=== PATIENT | male | born 1955 | race Caucasian/White ===

== ENCOUNTER 2017-04-18 05:48 | Outpatient (CLI) | payer BC ==
[~2017-04-18] VITALS: Ht 177.8 cm; Wt 81.6 kg
[~2017-04-18 05:48] MED LIST: ALPR-557 PO; ALPR.25T PO; ALPR.5T PO; ALPR0.5T7 PO; AMIO200T50 PO; APIX5TAB PO; ASP325T PO; ASP81CT PO; ASP81TEC PO; ASPI-983 PO; ASPI-999 PO; ATRV10T PO; CARV3.12T PO; CEFU500T5 PO; CETI5TAB6 PO; CLOP75TA PO; CLOP75TA28 PO; CLPD75T PO; DCS100C PO; DILT120C82 PO; DIPH25CA79 PO; Diltiazem Hcl PO; GABA-490 PO; HYDR-34 PO; HYDR-3812 PO; HYDR1CAP2 PO; IBUP-30 PO; Ibuprofen PO; LACT1CAP62 PO; LORA10TA7 PO; MELO15TA14 PO; MELO15TA39 PO; METO-387 PO; MULT-633 PO; MULT-974 PO; NAPR250T34 PO; NITR0.4T SL; NITR0.4T39 SL; OMEG-105 PO; OMEG1CAP24 PO; OMEGA 3 PO; OMEP20CA12 PO; PANT20TA2 PO; PANT40TA PO; PNT40TEC PO; PRAV20TA3 PO; PRED15SO PO; RAMI2.5C PO; RANI-10; RANI150T11 PO; RANO500T3 PO; RMP2.5C PO; RNT150T PO; SENN-33 PO; TRAM-21 PO; TRAM50TA2; TRAM50TA2 PO
[2017-04-18] MEDS ORDERED: ASPI-586 PO (15:26)
[2017-04-18] MEDS ORDERED: GABA600T2 PO (15:26)
[2017-04-18] MEDS ORDERED: AMLO2.5T PO (15:26)
== END 2017-04-18 15:29 ==
LOC: PREOP 05:48
PROVIDERS: ATTEND Surgery
DX: Z01.818 Encounter for other preprocedural examination (principal); Z12.11 Encounter for screening for malignant neoplasm of colon

== ENCOUNTER 2017-04-25 07:30 | Day surgery (SDC) | payer BC ==
[~2017-04-25] VITALS: Ht 177.8 cm; Wt 81.6 kg
[~2017-04-25 07:30] MED LIST changes: +AMLO2.5T PO; +ASPI-586 PO; +GABA600T2 PO
--- OUTSIDE RECORDS SUMMARY | 2017-04-25 07:33 | XMS REPORT | Continuity of Care Document ---
Author Author [employer] Organization [facility] Address Unknown Phone Unavailable Care Team Providers Care Enterprise Project Manager Name Role Phone [employer] Unavailable Unavailable Problems Medications Allergies, Adverse Reactions, Alerts Immunizations Results Vital Signs Encounters Procedures Plan of Care Social History Assessment and Plan Family History Value Date Source Advance Directives Order Name Results Value Date Source
--- OUTSIDE RECORDS SUMMARY | 2017-04-25 07:33 | XMS REPORT | Clinical Summary ---
Author Author [facility] Organization [facility] Address Unknown Phone Unavailable Care Team Providers Care Architectural Representative Name Role Phone PCP Unavailable Source Comments Some departments are not documenting in the electronic medical record. If you do not see the information that you expected, contact Release of Information in the Health Information Management department at [phone] for further assistance in locating additional records.[facility] Allergies No Known Allergies Current Medications Prescription Sig. Disp. Refills Start End Date Status Date nitroglycerin (NITROSTAT) Place 0.4 mg under tongue Active 0.4 mg tablet every 5 minutes as needed for Chest Pain. ALPRAZolam (XANAX) 0.5 mg Take 0.5 mg by mouth as Active tablet Needed. diphenhydrAMINE (BENADRYL Take 50 mg by mouth at Active ALLERGY) 25 mg tablet bedtime as needed. DOCOSAHEXANOIC ACID/EPA Take 2,000 Units by mouth Active (FISH OIL PO) twice daily. HYDROcodone/acetaminophen Take 1 Tab by mouth every Active (NORCO; VICODIN) 5-325 mg 4 hours as needed for tablet Pain Lactobacillus rhamnosus Take 1 Cap by mouth Active GG (LACTOBACILLUS daily. RHAMNOSUS (GG)) 15 billion cell cpSP aspirin EC 81 mg tablet Take 81 mg by mouth Active daily. Take with food. apixaban (ELIQUIS) 5 mg Take 1 Tab by mouth twice 180 Tab 3 08/14/19 Active tablet daily. 17 meloxicam (MOBIC) 15 mg Take 15 mg by mouth Active tablet daily. gabapentin (NEURONTIN) Take 1 tablet by mouth 2 04/08/20 Active 600 mg tablet three times daily. 17 RANITIDINE HCL (ZANTAC Take by mouth as Needed. Active PO) docusate (COLACE) 100 mg Take 100 mg by mouth as Active capsule Needed for Constipation. amLODIPine (NORVASC) 2.5 Take 1 tablet by mouth 180 tablet 3 04/13/20 Active mg tablet twice daily. 17 gabapentin (NEURONTIN) Take 100 mg by mouth 04/13/20 Discontin 100 mg capsule twice daily. [address] Take 40 mg by mouth as 04/13/20 Discontin (NEXIUM) 40 mg capsule Needed. Take on an empty 17 ued stomach at least 1 hour before or 2 hours after food. amLODIPine (NORVASC) 2.5 Take 1 Tab by mouth 90 Tab 3 08/14/1904/13 Discontin mg tablet daily. 17 17 ued Active Problems Problem Noted Date Atrial fibrillation (HCC) 12/02/2014 Last Assessment & Plan: Paroxysmal atrial fibrillation and atrial flutter- Despite being on antiarrhythmic drug therapy with Multaq, Mr. Jansen continues to have symptomatic episodes of atrial fibrillation, that are lifestyle limiting. Once again, a detailed discussion ensued about atrial fibrillation and the treatment options at this time. Options discussed included: drug therapy for rate control, continuing antiarrhythmic drug therapy, which his atrial arrhythmias have been refractory to, and catheter based radiofrequency ablation. The details, benefits, and risks of the procedure were discussed in detail. Because recurrence of atrial arrhythmias can occur in the immediate post procedure period, antiarrhythmic therapy will be restarted post procedure and continued for 2-3 months. Mr. Jansen and his verbalized understanding of the procedure and the risks. All of his questions were answered to his satisfaction and the patient wishes to proceed with atrial flutter/atrial fibrillation/left atrial antral isolation radiofrequency ablation. Printed pre-procedure instructions were given with directions on when to hold and restart medications and the nurse reviewed the instructions with the patient. Normal cardiac function test 10/23/2014 Overview: 12/30/12 Echo ([facility]): Normal LV systolic function, EF 60%. PAP normal. 08/01/13 Treadmill stress test ([facility]): Negative for ischemia. 01/04/14 Echo ([facility]): Normal LV systolic function, EF 60%. PAP normal. 09/27/14 Echo ([facility]): Normal LV systolic function, EF 55-60%. PAP normal. CAD (coronary artery disease) 10/23/2014 Overview: 10/30/12: CABGx4 with non-reversed saphenous vein grafts to diagonal, obtuse marginal and right coronary arteries and the left internal thoracic artery graft to anterior descending coronary artery. 01/03/14: Cath with coronary intervention ([facility]) 1. 95% stenosis within proximal right coronary artery was successfully stented with Promus Premier 2.25 x 12 mm stent deployed at 20 atmospheres with reduction of stenosis to 0% residual. 06/17/14: CCTA: No PE. 09/27/14: Cath ([facility]) 1. Severe CAD consisting of mid-vessel occlusion LAD, severe disease of first branch and severe disease of proximal left circumflex artery and its main obtuse marginal branch. L ast Assessment & Plan: Mr. Jansen denies any new symptomatic complaints suggestive of ischemia. His coronary artery disease is managed by his primary taxonomy teacher Dr. Meléndez. HTN (hypertension) 10/23/2014 Last Assessment & Plan: Well controlled on current therapy. Hyperlipidemia 10/23/2014 Encounters Date Type Specialty Care Team Description 04/13/2017 Office Visit Cardiology Roni Larson MD Paroxysmal Afib (8 month follow up); Atrial Flutter; Medication Question (meloxicam with eliquis?); Elevated Blood Pressure from Last 3 Months Family History Medical History Relation Name Comments Heart Disease Brother Heart Attack Brother Cancer Father Heart Attack Father Heart Disease Father Stroke Mother Heart Disease Sister Heart Attack Sister Relation Name Status Comments Brother Brother Father Mother Sister Sister Social History Tobacco Use Types Packs/Day Years Used Date Former Smoker Cigarettes 1 4 Quit: 07/02/1981 Smokeless Tobacco: Former Quit: User 07/02/1973 Alcohol Use Drinks/Week oz/Week Comments Yes 0 Standard 0.0 1-2 x per year drinks or equivalent Sex Assigned at Date Recorded Not on file Last Filed Vital Signs Vital Sign Reading Time Taken Blood Pressure 154/98 04/13/2017 10:38 AM TECHNICAL SERVICES LIBRARIAN Pulse 61 04/13/2017 10:38 AM TECHNICAL SERVICES LIBRARIAN Temperature 35.5 C (95.9 F) 08/06/2015 9:30 AM CDT Respiratory Rate - - Oxygen Saturation 98% 08/06/2015 9:30 AM CDT Inhaled Oxygen - - Concentration Weight 82.1 kg (181 lb) 04/13/2017 10:38 AM TECHNICAL SERVICES LIBRARIAN Height 177.8 cm (5' 10") 04/13/2017 10:38 AM TECHNICAL SERVICES LIBRARIAN Body Mass Index 25.97 04/13/2017 10:38 AM TECHNICAL SERVICES LIBRARIAN Plan of Treatment Health Maintenance Due Date Last Done Comments HEPATITIS C SCREENING 1956 PHYSICAL (COMPREHENSIVE) 07/24/1963 EXAM PERTUSSIS VACCINE 07/24/1967 TETANUS VACCINE 1973 COLORECTAL CANCER 2006 SCREENING SHINGLES VACCINE 2016 INFLUENZA VACCINE 12/07/2016 Results * ECG/QRS (04/13/2017 10:49 AM) Component Value Ref Range QRS DURATION 96 Specimen Performing Laboratory OTHER OUTSIDE LAB from Last 3 Months
--- OUTSIDE RECORDS SUMMARY | 2017-04-25 07:33 | XMS REPORT | Encounter Summary ---
Author Author [facility] Organization [facility] Address Unknown Phone Unavailable Care Team Providers Care Garage Manager Name Role Phone PCP Unavailable Reason for Visit * Reason Comments Paroxysmal Afib 8 month follow up Atrial Flutter Medication Question meloxicam with eliquis? Elevated Blood Pressure Encounter Details Date Type Department Care Team Description 04/13/2017 Office Visit [facility] Cardiology Roni Larson MD Paroxysmal Afib ([address] month [address] follow up); Atrial [address] Flutter; [place] [address] [place] [address] Question (meloxicam with [phone] eliquis?); Elevated Blood Pressure Social History Tobacco Use Types Packs/Day Years Used Date Former Smoker Cigarettes 1 4 Quit: 07/02/1981 Smokeless Tobacco: Former Quit: User 07/02/1973 Alcohol Use Drinks/Week oz/Week Comments Yes 0 Standard 0.0 1-2 x per year drinks or equivalent Sex Assigned at Date Recorded Not on file as of this encounter Last Filed Vital Signs Vital Sign Reading Time Taken Blood Pressure 154/98 04/13/2017 10:38 AM LIQUID SUGAR MELTER Pulse 61 04/13/2017 10:38 AM LIQUID SUGAR MELTER Temperature - - Respiratory Rate - - Oxygen Saturation - - Inhaled Oxygen - - Concentration Weight 82.1 kg (181 lb) 04/13/2017 10:38 AM LIQUID SUGAR MELTER Height 177.8 cm (5' 10") 04/13/2017 10:38 AM LIQUID SUGAR MELTER Body Mass Index 25.97 04/13/2017 10:38 AM LIQUID SUGAR MELTER in this encounter Instructions * Patient Instructions - Vickie Delgado RN - 04/13/2017 10:30 AM LIQUID SUGAR MELTER Increase your norvasc (amlodipine) 2.5 mg twice daily Talk with your urologist --Check your BP (Blood Pressure) daily and you may vary the time of day you check it. Monitor your blood pressure regularly Consider obtaining an automatic home blood pressure cuff if you don't already have one. Try to follow a low salt diet. If you smoke, make an honest effort to quit. Exercise helps with your blood pressure. Try to get at least 30 minutes of moderate intensity exercise at least 4 days a week. Your desired BP is with the top # less than 135 and bottom # less than 85. Call our office or your PCP if your blood pressure remains at or above the desired measurement consistently. If you have questions about your blood pressure readings, please contact the office. Follow up with Dr Larson in one year If you have change in signs or symptoms [phone] in this encounter Progress Notes * Roni Larson MD - 04/13/2017 10:30 AM LIQUID SUGAR MELTER Formatting of this note may be different from the original. Date of Service: 04/13/2017 Logan Hernandez is a 61 y.o. male. HPI I had the pleasure of seeing your patient Logan HERNANDEZ in the [facility] as a part of the [facility] [place] office today for follow-up regarding his Atrial Arrhythmias. His Primary Quarter Backer is my friend and colleague, Dr. Tayler Meléndez. Mr. HERNANDEZ is an exceptionally pleasant 61 y.o. Male. Also, with both their permission, I have also seen his brother, Lefty. The past medical history and data below has been reviewed and updated by me with new events for today's visit. 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 Meléndez); Hypertension; and Hyperlipidemia. He has a [id number] score of 2: CAD; HTN Regarding his AFIB Hx: Please see Problem List and Prior OV notes including and Especially 10/17/15 and Initial Consultation note for greater detail. However , briefly: HE HAS BEEN REFRACTORY to MULTAQ. He also had some intolerance to it as well. -- 10/2012: Post-CABG AFIB. -- [id number]: No significant recurrences. Multiple Holter monitors by Dr. Meléndez with NO AFIB, only isolated ectopy. -- 10/01/14: Recurrent AFIB (he attributes this to being on Prednisone). -- 10/22/14: Recurrent AFIB/AFL. -- 10/23/14: Initial EP Consultation: ECG documented coarse AFIB, which then seemed to organize into an AFL. The flutter waves were clearly negative in the Inferior leads, and upright in V1, suggesting a possible Right-sided CTI- Dependent circuit. However, the flutter waves in the Inferior leads were also narrow, suggesting a Left-sided AFIB conducting over to the RA with an organized activation (thus NOT being a true CTI-Dependent Right-sided AFL). -- 10/23/14: Initiated Multaq 400 mg BID. -- : ELR: Sxs of "fluttering" correlated mostly with sinus rhythm to sinus bradycardia with PACs, but 2 transmissions correlated with AFL and coarse AFIB. Sxs of chest discomfort correlated with sinus rhythm to sinus bradycardia. -- 01/23/15: [address] CTA: Mild LAE and 4 PVs. -- 07/2015:A. fib Ablation Canceledhe initially wished to proceed with an Ablation procedure, and was actually scheduled for an AFIB RFA with Right- Sided AFL CTI-RFA on 08/06/15. However, he seemed very anxious about the procedure-- in fact, he actually came in for the procedure one morning and just before leaving the preprocedure area "changed his mind." Unfortunately, he has changed his mind about the procedure on numerous occasions, including one morning the day he presented in the hospital for the procedure, stating he wanted to have it done at one moment and then later not. Ultimately, I was uncomfortable proceeding, since he did not seem to be definitive about his interest. Therefore, the procedure was canceled. -- 08/2015: Sxs of decreased energy since Multaq --> DC'ed Multaq, issued ELR. -- : ELR: Sxs of "fluttering" correlated mostly with sinus rhythm with occasional PVCs/PACs, but 2 transmissions correlated with brief (< 6 seconds) AFIB and ATACH. Regarding his CAD: Please see Problem List and Prior OV notes including and Initial Consultation note for greater detail. However, briefly: -- 10/2012: CABG x4. [place]:LAD, SVG:Diagonal, SVG:OM, and SVG:RCA. -- 12/2013: Cardiac Cath: Occluded SVG:RCA --> PCI with Stent. -- 09/27/14: Cardiac Cath: Unchanged Cornell and Grafts. Patent stent. Normal LVEDP. -- His CAD is followed via Dr. Meléndez's office. Regarding his Chronic Chest Pain Hx: Please see Problem List and Prior OV notes including 10/17/15 and Initial Consultation note for greater detail. However, briefly: -- 2012: Initially reported Sxs of CP Post-CABG. -- 09/2014: Extensive evaluation by Dr. Meléndez --> Ruled out aortic dissection or pulmonary embolus. -- 09/27/14: Cardiac Cath: Unchanged Cornell and Grafts. Patent stent. Normal LVEDP. 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 -- 07/2014: Sternal Plastic Surgery --> Sxs continued. -- 2015: Referred to [facility] for further evaluation and treatment. -- : ELR: Sxs of chest discomfort correlated with sinus rhythm to sinus bradycardia-- some transmissions with PACs, but other PACs were ASxic. -- 02/2015: [facility] Eval --> Initiated Empiric ASA and Colchicine 0.6 mg BID --> Titrated to 0.3 mg BID for Sxs of diarrhea. Pain Management recommended Lidocaine patches. -- 2014: ED Cardiac MRI: Reportedly concerning for Pericarditis --> Tx initiated by Primary CV. Regarding his Hyperlipidemia: Apparently he has had significant issues with statins causing worsening of his chest pain which was possibly improved after stopping them. -- 08/10/16: OV (Dr. Larson): Pt denied any Sxs suggestive of recurrent AFIB --> continued more vigilant pulse checks. DC'ed Toprol for Hypotension, initiated Norvasc 2.5 mg daily He STATES he is doing well. He does not believe he's had any recurrent AFIB, but he has noted an occasional palpitation/fluttering occurring in the evening when sitting. He denies any associated symptoms with these palpitations. His BPs have been elevated recently, getting as high as the 160/90s mmHg range despite taking his BP medication. He complains of some chest pain, though this issue is much better than it previously was. He denies any bleeding issues, tolerating anticoagulation well. He denies any chest discomfort, shortness of breath, lightheadedness, dizziness , near syncope or syncope, PND or orthopnea. FHx, SHx and ROS documented and I have reviewed, with some pertinent features to include: Positive FHx of premature CAD. He is a Former-Smoker (Quit 1981-- 1 ppd x 4 years). Most pertinent ROS is included/discussed throughout the note, e.g. HPI and A/P. ASSESSMENT AND PLAN: -- Paroxysmal Atrial Arrhythmias-- AFIB/AFL -- Anticoagulation -- Hypertension -- CAD -- Chronic Chest Wall Pain -- Hyperlipidemia From an arrhythmia standpoint Mr. Hernandez is actually doing exceptionally well. He does not think he had any recurrent atrial fibrillation. However he clearly had A. fib and atrial flutter in the past, and therefore when discussing his anticoagulation given his [id number] Score of 2 have not recommended that he discontinue his Eliquis. Previously we discussed the option of stopping it in undergoing a [employer] LinQ Implantable Monitor implantation. But I informed him that that did not eliminate the risk if he has prolonged recurrent A. fib. Therefore he is wished to continue anti-coagulation at this time. We also discussed his elevated blood pressure. He states his elevated home as well. In fact he stated intermittently would take an additional dose of Norvasc without any issue. Therefore today we have increased his Norvasc to 2.5 mg's twice daily. In the past he has had some orthostatic temp symptoms therefore been somewhat reluctant to make dramatic changes. The twice daily dosing instead of 5 mg at once. He does note an occasional palpitation or flutter. That is brief and infrequent. Does not seem to be a big issue. His CAD, etc. is being followed by Dr. Meléndez his primary vault keeper. Since he is doing so well from the arrhythmia standpoint, I scheduled him annual follow-up. A follow-up his blood pressure issues with his primary care physician and/or Dr. Meléndez. PLAN: -- Increase Amlodipine to 2.5 mg BID instead of once daily -- I have asked him to Check his BP (Blood Pressure) daily and vary the time of day he checks it. -- We discussed that exercise helps with his blood pressure and he should try to get at least 30 minutes of moderate intensity exercise at least 4 days a week. -- We discussed that his desired BP is less than 135 and less than 85. -- He has been feeling his pulse daily and has not noted any rapidity or irregularity. I have asked him to continue to monitor his pulse for rapidity and irregularity on a daily basis at roughly the same time each day. -- Since he is on anticoagulation, I have asked him to monitor for any signs or symptoms of bleeding, including blood in the stool or urine, etc and to contact his PMD if any occurs. -- I instructed him to follow up with a Urologist Mr. Hernandez was educated regarding plan of care. He was instructed to call our office with any questions or concerns, as well as to notify us of any new or worsening symptoms. He verbalized understanding. I appreciate the opportunity to participate in the care of your patient. Please do not hesitate to contact me directly if you have any questions or further insights into his care. I have scheduled his follow-up with me in 12 month(s). Vitals: 04/13/17 1038 BP: (!) 154/98 Pulse: 61 Weight: 82.1 kg (181 lb) Height: 1.778 m (5' 10") Body mass index is 25.97 kg/(m^2). Past Medical History Patient Active Problem List Diagnosis Date Noted Atrial fibrillation (HCC) 12/02/2014 Normal cardiac function test 10/23/2014 12/30/12 Echo ([facility]): Normal LV systolic function, EF 60%. PAP normal. 08/01/13 Treadmill stress test ([facility]): Negative for ischemia. 01/04/14 Echo ([facility]): Normal LV systolic function, EF 60%. PAP normal. 09/27/14 Echo ([facility]): Normal LV systolic function, EF 55-60%. PAP normal. CAD (coronary artery disease) 10/23/2014 10/30/12: CABGx4 with non-reversed saphenous vein grafts [...] 1. Severe CAD consisting of mid-vessel occlusion LAD , severe disease of first branch and severe disease of proximal left circumflex artery and its main obtuse marginal branch. HTN (hypertension) 10/23/2014 Hyperlipidemia 10/23/2014 Review of Systems Constitution: Positive for weakness. HENT: Positive for ear pain, hearing loss and tinnitus. Eyes: Positive for blurred vision and pain. Cardiovascular: Positive for chest pain, irregular heartbeat and palpitations. Respiratory: Negative. Endocrine: Positive for cold intolerance, heat intolerance and polydipsia. Hematologic/Lymphatic: Bruises/bleeds easily. Skin: Positive for dry skin and rash. Musculoskeletal: Positive for neck pain. Gastrointestinal: Positive for change in bowel habit, constipation, heartburn and hemorrhoids. Genitourinary: Positive for decreased libido. Neurological: Positive for numbness. Psychiatric/Behavioral: Positive for memory loss. Allergic/Immunologic: Positive for environmental allergies. Physical Exam Constitutional: He is in no acute distress, resting comfortably. Skin/Integument: Warm and dry. Eyes: PERRL, sclera are non-icteric and no xanthelasmas noted. ENT: Hearing is intact, Oropharynx is clear and moist. Heme/Lym/Immun: Supple neck, without thyromegaly. Respiratory-Pulmonary/Chest: Effort normal and breath sounds normal. No respiratory distress or accessory muscle use. No obvious tracheal deviation. Clear to auscultation bilaterally. Cardiovascular: No evidence of increased jugular venous pressure, carotids are 2+/4+ equal bilaterally, without obvious bruit. Regular rhythm, S1, S2. I do not appreciate any significant murmur today. No heaves, thrills or rubs. Musc/Skeletal-Extremities: Without significant peripheral edema. With what appears to be full ROM. Neuro: Patient is alert and oriented to person, place, and time. Psych: Patient does not appear anxious, he appears appropriate, with normal non -pressured speech and what appears to be appropriate judgement Cardiovascular Studies ECG today demonstrates sinus rhythm at 61 bpm. Problems Addressed Today Encounter Diagnoses Name Primary? Paroxysmal atrial fibrillation (HCC) Yes Essential hypertension Current Medications (including today's revisions) ALPRAZolam (XANAX) 0.5 mg tablet Take 0.5 mg by mouth as Needed. amLODIPine (NORVASC) 2.5 mg tablet Take 1 tablet by mouth twice daily. apixaban (ELIQUIS) 5 mg tablet Take 1 Tab by mouth twice daily. aspirin EC 81 mg tablet Take 81 mg by mouth daily. Take with food. diphenhydrAMINE (BENADRYL ALLERGY) 25 mg tablet Take 50 mg by mouth at bedtime as needed. DOCOSAHEXANOIC ACID/EPA (FISH OIL PO) Take 2,000 Units by mouth twice daily. docusate (COLACE) 100 mg capsule Take 100 mg by mouth as Needed for Constipation. gabapentin (NEURONTIN) 600 mg tablet Take 1 tablet by mouth three times daily. HYDROcodone/acetaminophen (NORCO; VICODIN) 5-325 mg tablet Take 1 Tab by mouth every 4 hours as needed for Pain Lactobacillus rhamnosus GG (LACTOBACILLUS RHAMNOSUS (GG)) 15 billion cell cpSP Take 1 Cap by mouth daily. meloxicam (MOBIC) 15 mg tablet Take 15 mg by mouth daily. nitroglycerin (NITROSTAT) 0.[address] 0.4 mg under tongue every 5 minutes as needed for Chest Pain. RANITIDINE HCL (ZANTAC PO) Take by mouth as Needed. Documentation recorded by Lg Robbins, acting as scribe for Roni Larson M.D. in this encounter Plan of Treatment Name Priority Associated Diagnoses Order Schedule ECG 12-LEAD Routine Paroxysmal atrial Ordered: 04/13/2017 fibrillation (HCC) Essential hypertension as of this encounter Results * ECG/QRS (04/13/2017 10:49 AM) Component Value Ref Range QRS DURATION 96 Specimen Performing Laboratory OTHER OUTSIDE LAB in this encounter Visit Diagnoses Diagnosis Paroxysmal atrial fibrillation (HCC) - Primary Atrial fibrillation Essential hypertension Unspecified essential hypertension in this encounter
--- OUTSIDE RECORDS SUMMARY | 2017-04-25 07:34 | XMS REPORT ---
Author Author Jc Mendez [facility] Address [address] [place], [place] [id number] Care Team Providers Care Sustainability Manager Name Role Phone Jc Mendez PCP Unavailable LaurieMiller V PreferredProvider Unavailable Allergies and Adverse Reactions Name Reaction Notes No known drug allergy Plan of Treatment Not available. Medications Active Name Start Date Estimated Completion Date SIG Comments amlodipine 2.5 mg oral tablet take 1 tablet (2.5 mg) by oral route once daily aspirin 81 mg oral tablet,delayed release (DR/EC) take 1 tablet (81 mg) by oral route once daily Eliquis 5 mg oral tablet take 1 tablet (5 mg) by oral route 2 times per day gabapentin 600 mg oral tablet take 1 tablet by oral route 2 times a day hydrocodone-acetaminophen 5-325 mg oral tablet take 1 tablet by oral route every 4-6 hours as needed for pain Colace 100 mg oral capsule take 1 capsule (100 mg) by oral route 2 times per day Fish Oil 1 tablet oral daily Probiotic oral daily Problem List Description Status Onset Coronary artery disease Active Hyperlipidemia Active Hypertension Active Vital Signs Date Time BP-Sys(mm[Hg] BP-Duyen(mm[Hg]) HR(bpm) RR(rpm) Temp WT HT HC BMI BSA BMI Percentile O2 Sat(%) 12/13/2016 11:51:00 AM 132 mmHg 94 mmHg 20 rpm 96.3 F 11/29/2016 11:42:00 AM 116 mmHg 86 mmHg 73 bpm 16 rpm 97.8 F 179 lbs 70 in 25.6836 kg/m 2.0025 m 97 % Social History Name Description Comments Tobacco Former smoker History of Procedures Not available. Results Summary Not available. History Of Immunizations Not available. History of Past Illness Name Date of Onset Comments Coronary artery disease Hyperlipidemia Hypertension Ganglion cyst of right foot Nov 29 2016 11:43AM Postoperative Follow-up Dec 13 2016 11:51AM Payers Insurance Name Company Name Plan Name Plan Number Policy Number Policy Group Number Start Date [facility] [id number] N/A [employer] [facility] [id number] N/A History of Encounters Visit Date Visit Type Provider 12/13/2016 Office visit Jc Mendez MD 12/02/2016 Surgery Jc Mendez MD 11/29/2016 Office visit Jc Mendez MD 08/31/2011 [facility] Vianey Koenig MD
--- OUTSIDE RECORDS SUMMARY | 2017-04-25 07:35 | XMS REPORT ---
Author Author Jc Mendez [facility] Address [address] [place], [place] [id number] Care Team Providers Care Manager Interventional Name Role Phone Jc Mendez PCP Unavailable [...] HC BMI BSA BMI Percentile O2 Sat(%) 11/29/2016 11:42:00 AM 116 mmHg 86 mmHg 73 bpm 16 rpm 97.8 F 179 lbs 70 in 25.68 kg/m2 2.00 m2 97 % Social History Name Description Comments Tobacco Former smoker History of Procedures Not available. Results Summary Not available. History Of Immunizations Not available. History of Past Illness Name Date of Onset Comments Coronary artery disease Hyperlipidemia Hypertension Ganglion cyst of right foot Nov 29 2016 11:43AM Payers Insurance Name Company Name Plan Name Plan Number Policy Number Policy Group Number [facility] [id number] N/A [facility] [id number] N/A History of Encounters Visit Date Visit Type Provider 11/29/2016 Office visit Jc Mendez MD 08/31/2011 [facility] Rosette Koenig MD
--- OUTSIDE RECORDS SUMMARY | 2017-04-25 07:36 | XMS REPORT | Continuity of Care Document ---
Demographics Preferred Language Unknown Marital Status Unknown Islam Affiliation Unknown Race Unknown Ethnic Group Unknown Author Author [facility] Address Unknown Phone Unavailable Allergies Active Description Code Type Severity Reaction Onset Reported/Identified Relationship to Patient Clinical Status Yes No Known Drug Allergies [id number] Drug Allergy Unknown N/A 10/26/2012 Medications There is no data. Problems Date Dx Coded Attending Type Code Diagnosis Diagnosed By 04/15/2009 388.70 earache 04/15/2009 461.9 SINUSITIS ACUTE 04/15/2009 780.60 fever [as symptom] 04/15/2009 786.05 shortness of breath 04/15/2009 786.2 cough 07/10/2009 728.85 MUSCLE SPASM 07/10/2009 847.0 NECK STRAIN 01/23/2010 465.9 ACUTE UPPER RESPIRATORY INFECTIONS OF UNSPECIFIED SITE 01/23/2010 780.2 SYNCOPE AND COLLAPSE 05/11/2010 462 ACUTE PHARYNGITIS 05/11/2010 463 TONSILLITIS ACUTE 12/08/2010 300.00 ANXIETY STATE UNSPECIFIED 10/27/2012 JOSELYN LEMON MD, FACC FACP CCDS Ot 401.9 HYPERTENSION NOS 10/27/2012 JOSELYN LEMON MD, FACCP CCDS Ot 414.01 CORONARY ATHEROSCLEROSIS OF [place] CORON 10/27/2012 JOSELYN LEMON MD, FACC FACP CCDS Ot 786.59 CHEST PAIN NEC 10/27/2012 JOSELYN LEMON MD, FACCP CCDS Ot V17.49 FAMILY HISTORY OF OTHER CARDIOVASCULAR D 11/15/2012 TONY KLEIN DO Ot 427.31 ATRIAL FIBRILLATION 11/15/2012 TONY KLEIN DO Ot 458.9 HYPOTENSION NOS 11/15/2012 TONY KLEIN DO Ot 780.4 DIZZINESS AND GIDDINESS 12/30/2012 JOSELYN LEMON MD, FACC FACP CCDS Ot 272.4 HYPERLIPIDEMIA NEC/NOS 12/30/2012 JOSELYN LEMON MD, FACC FACP CCDS Ot 288.60 LEUKOCYTOSIS, UNSPECIFIED 12/30/2012 JOSELYN LEMON MD, FACC FACP CCDS Ot 511.9 PLEURAL EFFUSION NOS 12/30/2012 JOSELYN LEMON MD, FACC FACP CCDS Ot 786.52 PAINFUL RESPIRATION 12/30/2012 ION JENNINGS FACC, JOSELYN FACP CCDS Ot 796.3 LOW BLOOD PRESS READING 12/30/2012 JOSELYN LEMON MD, FACC FACP CCDS Ot V17.3 FAM HX-ISCHEM HEART DIS 12/30/2012 JOSELYN LEMON MD, FACC FACP CCDS Ot V45.81 AORTOCORONARY BYPASS 03/05/2013 JOSELYN LEMON MD, FACC FACP CCDS Ot 272.4 HYPERLIPIDEMIA NEC/NOS 03/05/2013 JOSELYN LEMON MD, FACC FACP CCDS Ot 401.9 HYPERTENSION NOS 03/05/2013 ION JENNINGS FACC, JOSELYN FACP CCDS Ot 414.00 CORON ATHEROSCLER NOS TYPE VESSEL, NATIV 03/05/2013 JOSELYN LEMON MD, FACC FACP CCDS Ot 458.29 OTHER IATROGENIC HYPOTENSION 03/05/2013 JOSELYN LEMON MD, FACC FACP CCDS Ot 780.2 SYNCOPE AND COLLAPSE 03/05/2013 JOSELYN LEMON MD, FACC FACP CCDS Ot 786.59 CHEST PAIN NEC 03/05/2013 JOSELYN LEMON MD, FACC FACP CCDS Ot E947.9 ADV EFF MEDICINAL NOS 03/05/2013 JOSELYN LEMON MD, FACC FACP CCDS Ot V04.81 ND FOR PROPHYLACTIC VACCIN AND INOCULATI 03/05/2013 JOSELYN LEMON MD, FACC FACP CCDS Ot V45.81 AORTOCORONARY BYPASS 01/04/2014 JOSELYN LEMON MD, FACC FACP CCDS Ot 272.4 HYPERLIPIDEMIA NEC/NOS 01/04/2014 JOSELYN LEMON MD, FACC FACP CCDS Ot 401.9 HYPERTENSION NOS 01/04/2014 JOSELYN LEMON MD, FACC FACP CCDS Ot 414.01 CORONARY ATHEROSCLEROSIS OF [place] CORON 01/04/2014 JOSELYN LEMON MD, FACC FACP CCDS Ot 414.02 CORON ATHEROSCLEROSIS AUTOLOG VEIN BYPAS 01/04/2014 JOSELYN LEMON MD, FACC FACP CCDS Ot 414.2 CHRONIC TOTAL OCCLUSION OF CORONARY [place] 01/04/2014 JOSELYN LEMON MD, FACC FACP CCDS Ot 785.1 PALPITATIONS 01/04/2014 JOSELYN LEMON MD, FACC FACP CCDS Ot V45.81 AORTOCORONARY BYPASS 01/04/2014 ION MD FACC, ALI FACP CCDS Ot V58.69 [facility] MED,LT,CURRENT USE 05/05/2014 ION JENNINGS FACC, ALI FACP CCDS Ot 785.1 PALPITATIONS 06/17/2014 MILA JENNINGS, DARIO Ot 414.00 06/17/2014 MILA JENNINGS, DARIO Ot 427.89 06/17/2014 MILA JENNNIGS, VIRASEELAN Ot 786.50 06/17/2014 DORIS BERG MARKETING DATA SPECIALIST Ot 786.50 06/17/2014 ION JENNINGS FACC, ALI FACP CCDS Ot 785.1 07/04/2014 ION LONGC, ALI FACP CCDS Ot 401.9 07/04/2014 ION JENNINGS FACC, ALI FACP CCDS Ot 414.00 07/04/2014 ION JENNINGS FACC, ALI FACP CCDS Ot 427.69 07/04/2014 ION JENNINGS FACC, ALI FACP CCDS Ot 780.2 07/04/2014 ION JENNINGS FACC, ALI FACP CCDS Ot 785.1 07/04/2014 ION JENNINGS FACC, ALI FACP CCDS Ot 786.52 08/21/2014 IMAN LUNA MD Ot 998.31 09/19/2014 ION JENNINGS FACC, ALI FACP CCDS Ot 786.52 09/19/2014 ION JENNINGS FACC, ALI FACP CCDS Ot V57.1 09/27/2014 IMAN LUNA MD Ot 998.31 09/27/2014 ION JENNINGS FACC, ALI FACP CCDS Ot 272.4 HYPERLIPIDEMIA NEC/NOS 09/27/2014 ION JENNINGS FACC, ALI FACP CCDS Ot 300.00 ANXIETY STATE NOS 09/27/2014 ION JENNINGS FACC, ALI FACP CCDS Ot 401.9 HYPERTENSION NOS 09/27/2014 ION JENNINGS FACC, ALI FACP CCDS Ot 414.01 CORONARY ATHEROSCLEROSIS OF [place] CORON 09/27/2014 ION JENNINGS FACC, JOSELYN FACP CCDS Ot 414.02 CORON ATHEROSCLEROSIS AUTOLOG VEIN BYPAS 09/27/2014 ION JENNINGS FACC, ALI FACP CCDS Ot 414.2 CHRONIC TOTAL OCCLUSION OF CORONARY [place] 09/27/2014 ION JENNINGS FACC, ALI FACP CCDS Ot 427.69 PREMATURE BEATS NEC 09/27/2014 ION JENNINGS FACC, ALI FACP CCDS Ot 786.59 CHEST PAIN NEC 09/27/2014 ION JENNINGS FACC, ALI FACP CCDS Ot V45.81 AORTOCORONARY BYPASS 09/27/2014 ION JENNINGS FACC, ALI FACP CCDS Ot V45.82 PERCUTANEOUS TRANSLUM CORON ANGIOPLASTY 09/27/2014 ION JENNINGS FACC, ALI FACP CCDS Ot V58.69 OT MED,LT,CURRENT USE 10/02/2014 ION JENNNIGS FACC, ALI FACP CCDS Ot 272.4 HYPERLIPIDEMIA NEC/NOS 10/02/2014 ION JENNINGS FACC, ALI FACP CCDS Ot 300.00 ANXIETY STATE NOS 10/02/2014 ION JENNINGS FACC, ALI FACP CCDS Ot 414.00 CORON ATHEROSCLER NOS TYPE VESSEL, NATIV 10/02/2014 ION JENNINGS FACC, ALI FACP CCDS Ot 427.31 ATRIAL FIBRILLATION 10/02/2014 ION JENNINGS FACC, ALI FACP CCDS Ot 786.52 PAINFUL RESPIRATION 10/02/2014 ION JENNINGS FACC, ALI FACP CCDS Ot 790.29 OTHER ABNORMAL GLUCOSE 10/02/2014 ION JENNINGS FACC, ALI FACP CCDS Ot V45.81 AORTOCORONARY BYPASS 10/09/2014 ION JENNINGS FACC, ALI FACP CCDS Ot 786.52 10/09/2014 ION JENNINGS FACC, ALI FACP CCDS Ot V57.1 10/16/2014 ION JENNINGS FACC, ALI FACP CCDS Ot 786.52 PAINFUL RESPIRATION 10/16/2014 ION JENNINGS FACC, ALI FACP CCDS Ot V57.1 PHYSICAL THERAPY NEC 10/22/2014 CEZAR ANDREWS MD Ot 427.31 ATRIAL FIBRILLATION 10/22/2014 CEZAR ANDREWS MD Ot 427.9 CARDIAC DYSRHYTHMIA NOS 10/22/2014 CEZAR ANDREWS MD Ot V58.66 LONG-TERM (CURRENT) USE OF ASPIRIN 10/22/2014 CEZAR ANDREWS MD Ot V58.69 OT MED,LT,CURRENT USE 10/29/2014 ION JENNINGS FACC, ALI FACP CCDS Ot 786.52 10/29/2014 ION JENNINGS FACC, ALI FACP CCDS Ot V57.1 02/21/2015 DARIO ZARAGOZA MD Ot 414.00 02/21/2015 MILA JENNINGS, JAYASEELAN Ot 427.89 02/21/2015 MILA JENNINGS, VIRASEELAN Ot 786.50 02/21/2015 DORIS BERG MARKETING DATA SPECIALIST Ot 786.50 02/21/2015 ION JENNINGS FACC, ALI FACP CCDS Ot 785.1 02/21/2015 ION JENNINGS FACC, ALI FACP CCDS Ot 401.9 02/21/2015 ION JENNINGS FACC, ALI FACP CCDS Ot 414.00 02/21/2015 ION JENNINGS FACC, ALI FACP CCDS Ot 427.69 02/21/2015 ION JENNINGS FACC, ALI FACP CCDS Ot 780.2 02/21/2015 ION JENNINGS FACC, ALI FACP CCDS Ot 785.1 02/21/2015 ION JENNINGS FACC, ALI FACP CCDS Ot 786.52 02/21/2015 IMAN LUNA MD Ot 998.31 06/25/2015 MILA JENNINGS, VIRASEELAN Ot 414.00 06/25/2015 MILA JENNINGS, VIRASEELAN Ot 427.89 06/25/2015 MILA JENNINGS, VIRASEELAN Ot 786.50 06/25/2015 DORIS BERG MARKETING DATA SPECIALIST Ot 786.50 06/25/2015 ION JENNINGS FACC, ALI FACP CCDS Ot 785.1 06/25/2015 ION JENNINGS FACC, ALI FACP CCDS Ot 401.9 06/25/2015 ION JENNINGS FACC, ALI FACP CCDS Ot 414.00 06/25/2015 ION JENNINGS FACC, ALI FACP CCDS Ot 427.69 06/25/2015 ION JENNINGS FACC, ALI FACP CCDS Ot 780.2 06/25/2015 ION JENNINGS FACC, ALI FACP CCDS Ot 785.1 06/25/2015 ION JENNINGS FACC, ALI FACP CCDS Ot 786.52 06/25/2015 IMAN LUNA MD Ot 998.31 07/19/2015 MILA JENNINGS, VIRASEELAN Ot 414.00 07/19/2015 VIRA ZARAGOZA MDSEELAN Ot 427.89 07/19/2015 VIRA ZARAGOZA MDSEELAN Ot 786.50 07/19/2015 DORIS BERG MARKETING DATA SPECIALIST Ot 786.50 07/19/2015 ION JENNINGS FACC, ALI FACP CCDS Ot 785.1 07/19/2015 ION JENNINGS FACC, ALI FACP CCDS Ot 401.9 07/19/2015 ION JENNINGS FACC, ALI FACP CCDS Ot 414.00 07/19/2015 ION JENNINGS FACC, ALI FACP CCDS Ot 427.69 07/19/2015 ION JENNINGS FACC, ALI FACP CCDS Ot 780.2 07/19/2015 ION JENNINGS FACC, ALI FACP CCDS Ot 785.1 07/19/2015 ION JENNINGS FACC, ALI FACP CCDS Ot 786.52 07/19/2015 IMAN LUNA MD Ot 998.31 07/19/2015 MILA JENNINGS, RADHAELAN Ot 414.00 07/19/2015 MILA JENNINGS, VIRASEELAN Ot 427.89 07/19/2015 MILA JENNINGS, VIRASEELAN Ot 786.50 07/19/2015 DORIS BERG MARKETING DATA SPECIALIST Ot 786.50 07/19/2015 ION JENNINGS FACC, ALI FACP CCDS Ot 785.1 07/19/2015 ION JENNINGS FACC, ALI FACP CCDS Ot 401.9 07/19/2015 ION JENNINGS FACC, ALI FACP CCDS Ot 414.00 07/19/2015 ION JENNINGS FACC, ALI FACP CCDS Ot 427.69 07/19/2015 ION JENNINGS FACC, ALI FACP CCDS Ot 780.2 07/19/2015 ION JENNINGS FACC, ALI FACP CCDS Ot 785.1 07/19/2015 ION JENNINGS FACC, ALI FACP CCDS Ot 786.52 07/19/2015 IMAN LUNA MD Ot 998.31 07/19/2015 MILA JENNINGS, VIRASEELAN Ot 414.00 07/19/2015 MILA JENNINGS, VIRASEELAN Ot 427.89 07/19/2015 MILA JENNINGS, VIRASEELAN Ot 786.50 07/19/2015 DORIS BERG MARKETING DATA SPECIALIST Ot 786.50 07/19/2015 ION JENNINGS FACC, ALI FACP CCDS Ot 785.1 07/19/2015 ION JENNINGS FACC, ALI FACP CCDS Ot 401.9 07/19/2015 ION JENNINGS FACC, ALI FACP CCDS Ot 414.00 07/19/2015 ION JENNINGS FACC, ALI FACP CCDS Ot 427.69 07/19/2015 ION JENNINGS FACC, ALI FACP CCDS Ot 780.2 07/19/2015 ION JENNINGS FACC, ALI FACP CCDS Ot 785.1 07/19/2015 ION JENNINGS FACC, ALI FACP CCDS Ot 786.52 07/19/2015 IMAN LUNA MD Ot 998.31 08/04/2015 MILA JENNINGS, VIRASEELAN Ot 414.00 08/04/2015 MIAL JENNINGS, VIRASEELAN Ot 427.89 08/04/2015 MILA JENNINGS, VIRASEELAN Ot 786.50 08/04/2015 DORIS BERG MARKETING DATA SPECIALIST Ot 786.50 08/04/2015 ION JENNINGS FACC, ALI FACP CCDS Ot 785.1 08/04/2015 ION JENNINGS FACC, ALI FACP CCDS Ot 401.9 08/04/2015 ION JENNINGS FACC, ALI FACP CCDS Ot 414.00 08/04/2015 ION JENNINGS FACC, ALI FACP CCDS Ot 427.69 08/04/2015 ION JENNINGS FACC, ALI FACP CCDS Ot 780.2 08/04/2015 ION JENNINGS FACC, ALI FACP CCDS Ot 785.1 08/04/2015 ION JENNINGS FACC, ALI FACP CCDS Ot 786.52 08/04/2015 IMAN LUNA MD Ot 998.31 08/11/2015 MILA JENNINGS, VIRASEELAN Ot 414.00 08/11/2015 MILA JENNINGS, JAYASEELAN Ot 427.89 08/11/2015 MILA JENNINGS, JAZAIDSEELAN Ot 786.50 08/11/2015 DORIS BERG MARKETING DATA SPECIALIST Ot 786.50 08/11/2015 ION JENNINGS FACC, ALI FACP CCDS Ot 785.1 08/11/2015 ION JENNINGS FACC, ALI FACP CCDS Ot 401.9 08/11/2015 ION JENNINGS FACC, ALI FACP CCDS Ot 414.00 08/11/2015 ION LONGC, ALI FACP CCDS Ot 427.69 08/11/2015 ION JENNINGS FACC, ALI FACP CCDS Ot 780.2 08/11/2015 ION JENNINGS FACC, ALI FACP CCDS Ot 785.1 08/11/2015 ION JENNINGS FACC, ALI FACP CCDS Ot 786.52 08/11/2015 IMAN LUNA MD Ot 998.31 08/20/2015 ANA PAULA ALLEN MD Ot I48.0 08/29/2015 ION LONGC, ALI FACP CCDS Ot 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 W INTRMT 09/02/2015 DARIO ZARAGOZA MD Ot 414.00 CORON ATHEROSCLER NOS TYPE VESSEL, NATIV 09/02/2015 DARIO ZARAGOZA MD Ot 427.89 CARDIAC DYSRHYTHMIAS NEC 09/02/2015 DARIO ZARAGOZA MD Ot 786.50 CHEST PAIN NOS 09/02/2015 DORIS BERG MARKETING DATA SPECIALIST Ot 786.50 CHEST PAIN NOS 09/02/2015 ION JENNINGS FACC, ALI FACP CCDS Ot 785.1 PALPITATIONS 09/02/2015 ION JENNINGS FACC, ALI FACP CCDS Ot 401.9 HYPERTENSION NOS 09/02/2015 ION JENNINGS FACC, ALI FACP CCDS Ot 414.00 CORON ATHEROSCLER NOS TYPE VESSEL, NATIV 09/02/2015 ION LONGC, ALI FACP CCDS Ot 427.69 PREMATURE BEATS NEC 09/02/2015 ION LONGC, ALI FACP CCDS Ot 780.2 SYNCOPE AND COLLAPSE 09/02/2015 ION JENNINGS FACC, ALI FACP CCDS Ot 785.1 PALPITATIONS 09/02/2015 ION JENNINGS FACC, ALI FACP CCDS Ot 786.52 PAINFUL RESPIRATION 09/02/2015 IMAN LUNA MD Ot 998.31 DISRUPTION OF INTERNAL OPERATION (SURGIC 09/10/2015 ION JENNINGS FACC, ALI FACP CCDS Ot 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 W INTRMT 11/20/2015 DARIO ZARAGOZA MD Ot 414.00 CORON ATHEROSCLER NOS TYPE VESSEL, NATIV 11/20/2015 DARIO ZARAGOZA MD Ot 427.89 CARDIAC DYSRHYTHMIAS NEC 11/20/2015 MILA JENNINGS, DARIO Ot 786.50 CHEST PAIN NOS 11/20/2015 DORIS BERG MARKETING DATA SPECIALIST Ot 786.50 CHEST PAIN NOS 11/20/2015 ION JENNINGS FAC, ALI FACP CCDS Ot 785.1 PALPITATIONS 11/20/2015 ION JENNINGS FACC, ALI FACP CCDS Ot 401.9 HYPERTENSION NOS 11/20/2015 ION JENNINGS FACC, ALI FACP CCDS Ot 414.00 CORON ATHEROSCLER NOS TYPE VESSEL, NATIV 11/20/2015 ION JENNINGS FACC, ALI FACP CCDS Ot 427.69 PREMATURE BEATS NEC 11/20/2015 ION JENNINGS FACC, ALI FACP CCDS Ot 780.2 SYNCOPE AND COLLAPSE 11/20/2015 ION JENNINGS FACAsmita, ALI FACP CCDS Ot 785.1 PALPITATIONS 11/20/2015 ION JENNINGS FACC, ALI FACP CCDS Ot 786.52 PAINFUL RESPIRATION 11/20/2015 JEREMY JENNINGS, IMAN Ot 998.31 DISRUPTION OF INTERNAL OPERATION (SURGIC 02/16/2016 BEL CASSIDY DO Ot M94.0 CHONDROCOSTAL JUNCTION SYNDROME [TIETZE] 02/16/2016 BEL CASSIDY DO Ot R07.89 OTHER CHEST PAIN 02/16/2016 BEL CASSIDY DO Ot Z79.82 FRAUD EXAMINER (CURRENT) USE OF ASPIRIN 02/16/2016 BEL CASSIDY DO Ot Z79.899 OTHER FRAUD EXAMINER (CURRENT) DRUG THERAPY 02/16/2016 BEL CASSIDY DO Ot Z95.1 PRESENCE OF AORTOCORONARY BYPASS GRAFT 02/16/2016 BEL CASSIDY DO Ot Z95.5 PRESENCE OF CORONARY ANGIOPLASTY IMPLANT 02/17/2016 BEL CASSIDY DO Ot M94.0 CHONDROCOSTAL JUNCTION SYNDROME [TIETZE] 02/17/2016 BEL CASSIDY DO Ot R07.89 OTHER CHEST PAIN 02/17/2016 BEL CASSIDY DO Ot Z79.82 FPC (CURRENT) USE OF ASPIRIN 02/17/2016 BEL CASSIDY DO Ot Z79.899 OTHER FPC (CURRENT) DRUG THERAPY 02/17/2016 BEL CASSIDY DO Ot Z95.1 PRESENCE OF AORTOCORONARY BYPASS GRAFT 02/17/2016 BEL CASSIDY DO Ot Z95.5 PRESENCE OF CORONARY ANGIOPLASTY IMPLANT 02/24/2016 ANA PAULA ALLEN MD Ot I48.0 PAROXYSMAL ATRIAL FIBRILLATION 02/24/2016 ION JENNINGS [facility], ALI FACP CCDS Ot 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 W [facility] 02/24/2016 ANA PAULA ALLEN MD Ot I48.0 PAROXYSMAL ATRIAL FIBRILLATION 02/24/2016 ION JENNINGS [facility], ALI FACP CCDS Ot I70.213 ATHSCL [place] ARTERIES OF EXTR W [facility] 02/24/2016 BAIMA MELINDA L MARKETING DATA SPECIALIST Ot E78.5 HYPERLIPIDEMIA, UNSPECIFIED 02/24/2016 BAIMA MELINDA L MARKETING DATA SPECIALIST Ot I25.10 ATHSCL HEART DISEASE OF [place] CORONARY 02/24/2016 BAIMA MELINDA L MARKETING DATA SPECIALIST Ot I25.82 CHRONIC TOTAL OCCLUSION OF CORONARY [place] 02/24/2016 BAIMA MELINDA L MARKETING DATA SPECIALIST Ot I48.0 PAROXYSMAL ATRIAL FIBRILLATION 02/24/2016 VANESSAMAJOSEMELINDA L MARKETING DATA SPECIALIST Ot R07.89 OTHER CHEST PAIN 02/24/2016 VANESSAMA MELINDA L MARKETING DATA SPECIALIST Ot T82.857A STENOSIS OF OTHER CARDIAC PROSTH DEV/GRF 02/24/2016 JOSE BAILEYHER L MARKETING DATA SPECIALIST Ot Z79.01 FRAUD EXAMINER (CURRENT) USE OF ANTICOAGULANT 02/24/2016 MELINDA BAILEY L MARKETING DATA SPECIALIST Ot Z79.899 OTHER FRAUD EXAMINER (CURRENT) DRUG THERAPY 02/24/2016 MELINDA BAILEY L MARKETING DATA SPECIALIST Ot Z95.1 PRESENCE OF AORTOCORONARY BYPASS GRAFT 02/24/2016 MELINDA BAILEY L MARKETING DATA SPECIALIST Ot Z95.5 PRESENCE OF CORONARY ANGIOPLASTY IMPLANT 03/10/2016 BAIMAJOSEMELINDA L MARKETING DATA SPECIALIST Ot E78.5 HYPERLIPIDEMIA, UNSPECIFIED 03/10/2016 BAIMA MELINDA L MARKETING DATA SPECIALIST Ot I25.10 ATHSCL HEART DISEASE OF [place] CORONARY 03/10/2016 BAIMA MELINDA L MARKETING DATA SPECIALIST Ot I25.82 CHRONIC TOTAL OCCLUSION OF CORONARY [place] 03/10/2016 BAIMA MELINDA L MARKETING DATA SPECIALIST Ot I48.0 PAROXYSMAL ATRIAL FIBRILLATION 03/10/2016 BAIMA MELINDA L MARKETING DATA SPECIALIST Ot R07.89 OTHER CHEST PAIN 03/10/2016 VANESSAMA MELINDA L MARKETING DATA SPECIALIST Ot T82.857A STENOSIS OF OTHER CARDIAC PROSTH DEV/GRF 03/10/2016 MELINDA BAILEY MARKETING DATA SPECIALIST Ot Z79.01 FPC (CURRENT) USE OF ANTICOAGULANT 03/10/2016 MELINDA BAILEY MARKETING DATA SPECIALIST Ot Z79.899 OTHER FRAUD EXAMINER (CURRENT) DRUG THERAPY 03/10/2016 MELINDA BAILEY MARKETING DATA SPECIALIST Ot Z95.1 PRESENCE OF AORTOCORONARY BYPASS GRAFT 03/10/2016 MELINDA BAILEY MARKETING DATA SPECIALIST Ot Z95.5 PRESENCE OF CORONARY ANGIOPLASTY IMPLANT 04/26/2016 MILA JENNINGS, VIRASEELAN Ot 414.00 CORON ATHEROSCLER NOS TYPE VESSEL, NATIV 04/26/2016 VIRA ZARAGOZA MDSEELAN Ot 427.89 CARDIAC DYSRHYTHMIAS NEC 04/26/2016 VIRA ZARAGOZA MDSEELAN Ot 786.50 CHEST PAIN NOS 04/26/2016 DORIS BERG MARKETING DATA SPECIALIST Ot 786.50 CHEST PAIN NOS 04/26/2016 ION JENNINGS FACC, ALI FACP CCDS Ot 785.1 PALPITATIONS 04/26/2016 ION JENNINGS FACC, ALI FACP CCDS Ot 401.9 HYPERTENSION NOS 04/26/2016 ION JENNINGS FACC, ALI FACP CCDS Ot 414.00 CORON ATHEROSCLER NOS TYPE VESSEL, NATIV 04/26/2016 ION JENNINGS FACC, ALI FACP CCDS Ot 427.69 PREMATURE BEATS NEC 04/26/2016 ION JENNINGS FACC, ALI FACP CCDS Ot 780.2 SYNCOPE AND COLLAPSE 04/26/2016 ION JENNINGS FACC, ALI FACP CCDS Ot 785.1 PALPITATIONS 04/26/2016 ION JENNINGS FACC, ALI FACP CCDS Ot 786.52 PAINFUL RESPIRATION 04/26/2016 IMAN LUNA MD Ot 998.31 DISRUPTION OF INTERNAL OPERATION (SURGIC 05/06/2016 OTHER, UNLISTED Ot M96.89 OTH INTRAOP AND POSTPROC COMP AND DISORD 05/06/2016 OTHER, UNLISTED Ot R07.89 OTHER CHEST PAIN 05/06/2016 OTHER, UNLISTED Ot Z95.1 PRESENCE OF AORTOCORONARY BYPASS GRAFT 05/06/2016 OTHER, UNLISTED Ot M96.89 OTH INTRAOP AND POSTPROC COMP AND DISORD 05/06/2016 OTHER, UNLISTED Ot R07.89 OTHER CHEST PAIN 05/06/2016 OTHER, UNLISTED Ot Z95.1 PRESENCE OF AORTOCORONARY BYPASS GRAFT 05/08/2016 DARIO ZARAGOZA MD Ot 414.00 CORON ATHEROSCLER NOS TYPE VESSEL, NATIV 05/08/2016 DARIO ZARAGOZA MD Ot 427.89 CARDIAC DYSRHYTHMIAS NEC 05/08/2016 DARIO ZARAGOZA MD Ot 786.50 CHEST PAIN NOS 05/08/2016 DORIS BERG MARKETING DATA SPECIALIST Ot 786.50 CHEST PAIN NOS 05/08/2016 ION MD FACC, ALI FACP CCDS Ot 785.1 PALPITATIONS 05/08/2016 ION MD FACC, ALI FACP CCDS Ot 401.9 HYPERTENSION NOS 05/08/2016 ION MD FACC, ALI FACP CCDS Ot 414.00 CORON ATHEROSCLER NOS TYPE VESSEL, NATIV 05/08/2016 ION MD FACC, ALI FACP CCDS Ot 427.69 PREMATURE BEATS NEC 05/08/2016 ION MD FACC, ALI FACP CCDS Ot 780.2 SYNCOPE AND COLLAPSE 05/08/2016 ION JENNINGS FACC, ALI FACP CCDS Ot 785.1 PALPITATIONS 05/08/2016 ION JENNINGS FACC, ALI FACP CCDS Ot 786.52 PAINFUL RESPIRATION 05/08/2016 IMAN LUNA MD Ot 998.31 DISRUPTION OF INTERNAL OPERATION (SURGIC 05/12/2016 OTHER, UNLISTED Ot M96.89 OTH INTRAOP AND POSTPROC COMP AND DISORD 05/12/2016 OTHER, UNLISTED Ot R07.89 OTHER CHEST PAIN 05/12/2016 OTHER, UNLISTED Ot Z95.1 PRESENCE OF AORTOCORONARY BYPASS GRAFT 05/19/2016 OTHER, UNLISTED Ot M96.89 OTH INTRAOP AND POSTPROC COMP AND DISORD 05/19/2016 OTHER, UNLISTED Ot R07.89 OTHER CHEST PAIN 05/19/2016 OTHER, UNLISTED Ot Z95.1 PRESENCE OF AORTOCORONARY BYPASS GRAFT Procedures There is no data. Results Test Result Range Complete blood count (CBC) with automated white blood cell (WBC) differential - 02/16/16 13:35 Blood leukocytes automated count (number/volume) 6.8 10*3/uL 4.3-11.0 Blood erythrocytes automated count (number/volume) 5.03 10*6/uL 4.35-5.85 Venous blood hemoglobin measurement (mass/volume) 15.5 g/dL 13.3-17.7 Blood hematocrit (volume fraction) 45 % 40-54 Automated erythrocyte mean corpuscular volume 89 [foz_us] 80-99 Automated erythrocyte mean corpuscular hemoglobin (mass per erythrocyte) 31 pg 25-34 Automated erythrocyte mean corpuscular hemoglobin concentration measurement ( mass/volume) 35 g/dL 32-36 Automated erythrocyte distribution width ratio 12.8 % 10.0-14.5 Automated blood platelet count (count/volume) 208 10*3/uL 130-400 Automated blood platelet mean volume measurement 11.4 [foz_us] 7.4-10.4 Automated blood neutrophils/100 leukocytes 61 % 42-75 Automated blood lymphocytes/100 leukocytes 30 % 12-44 Blood monocytes/100 leukocytes 7 % 0-12 Automated blood eosinophils/100 leukocytes 1 % 0-10 Automated blood basophils/100 leukocytes 0 % 0-10 Blood neutrophils automated count (number/volume) 4.1 10*3 1.8-7.8 Blood lymphocytes automated count (number/volume) 2.1 10*3 1.0-4.0 Blood monocytes automated count (number/volume) 0.5 10*3 0.0-1.0 Automated eosinophil count 0.1 10*3/uL 0.0-0.3 Automated blood basophil count (count/volume) 0.0 10*3/uL 0.0-0.1 Fibrin D-dimer FEU measurement in platelet poor plasma (mass/volume) - 13:35 Fibrin D-dimer FEU measurement in platelet poor plasma (mass/volume) < ug/mL 0.00-0.49 Comprehensive metabolic panel - 02/16/16 13:35 Serum or plasma sodium measurement (moles/volume) 139 mmol/L 135-145 Serum or plasma potassium measurement (moles/volume) 4.3 mmol/L 3.6-5.0 Serum or plasma chloride measurement (moles/volume) 106 mmol/L 98-107 Carbon dioxide 26 mmol/L 21-32 Serum or plasma anion gap determination (moles/volume) 7 mmol/L 5-14 Serum or plasma urea nitrogen measurement (mass/volume) 14 mg/dL 7-18 Serum or plasma creatinine measurement (mass/volume) 0.84 mg/dL 0.60-1.30 Serum or plasma urea nitrogen/creatinine mass ratio 17 NRG Serum or plasma creatinine measurement with calculation of estimated glomerular filtration rate > NRG Serum or plasma glucose measurement (mass/volume) 88 mg/dL 70-105 Serum or plasma calcium measurement (mass/volume) 9.1 mg/dL 8.5-10.1 Serum or plasma total bilirubin measurement (mass/volume) 0.3 mg/dL 0.1-1.0 Serum or plasma alkaline phosphatase measurement (enzymatic activity/volume) 97 U/L 40-136 Serum or plasma aspartate aminotransferase measurement (enzymatic activity/ volume) 36 U/L 5-34 Serum or plasma alanine aminotransferase measurement (enzymatic activity/volume ) 40 U/L 0-55 Serum or plasma protein measurement (mass/volume) 6.7 g/dL 6.4-8.2 Serum or plasma albumin measurement (mass/volume) 4.3 g/dL 3.2-4.5 Magnesium - 02/16/16 13:35 Magnesium 2.3 mg/dL 1.8-2.4 Serum or plasma troponin i.cardiac measurement (mass/volume) - 02/16/16 13:35 Serum or plasma troponin i.cardiac measurement (mass/volume) < ng/ mL <0.30 Lipase - 02/16/16 13:35 Lipase 14 U/L 8-78 Serum or plasma lithium measurement (moles/volume) - 02/16/16 13:35 BNP level 35.1 pg/mL <100.0 Complete urinalysis with reflex to culture - 02/16/16 15:00 Urine color determination YELLOW NRG Urine clarity determination CLEAR NRG Urine pH measurement by test strip 6 5-9 Specific gravity of urine by test strip 1.005 1.016- 1.022 Urine protein assay by test strip, semi-quantitative NEGATIVE NEGATIVE Urine glucose detection by automated test strip NEGATIVE NEGATIVE Erythrocytes detection in urine sediment by light microscopy NEGATIVE NEGATIVE Urine ketones detection by automated test strip NEGATIVE NEGATIVE Urine nitrite detection by test strip NEGATIVE NEGATIVE Urine total bilirubin detection by test strip NEGATIVE NEGATIVE Urine urobilinogen measurement by automated test strip (mass/volume) NORMAL NORMAL Urine leukocyte esterase detection by dipstick NEGATIVE NEGATIVE Automated urine sediment erythrocyte count by microscopy (number/high power field) NONE NRG Automated urine sediment leukocyte count by microscopy (number/high power field ) NONE NRG Bacteria detection in urine sediment by light microscopy NEGATIVE NRG Squamous epithelial cells detection in urine sediment by light microscopy NONE NRG Crystals detection in urine sediment by light microscopy NONE NRG Casts detection in urine sediment by light microscopy NONE NRG Mucus detection in urine sediment by light microscopy NEGATIVE NRG Complete urinalysis with reflex to culture NO NRG Urine drug screening test - 02/16/16 15:00 Urine phencyclidine detection by screening method NEGATIVE NEGATIVE Urine benzodiazepines detection by screening method NEGATIVE NEGATIVE Urine cocaine detection NEGATIVE NEGATIVE Urine amphetamines detection by screening method NEGATIVE NEGATIVE Urine methamphetamine detection by screening method NEGATIVE NEGATIVE Urine cannabinoids detection by screening method NEGATIVE NEGATIVE Urine opiates detection by screening method NEGATIVE NEGATIVE Urine barbiturates detection NEGATIVE NEGATIVE Screening urine tricyclic antidepressants detection NEGATIVE NEGATIVE Urine methadone detection by screening method NEGATIVE NEGATIVE Urine oxycodone detection NEGATIVE NEGATIVE Urine propoxyphene detection NEGATIVE NEGATIVE Urine buprenophrine screen NEGATIVE NEGATIVE Automated blood complete blood count (hemogram) panel - 02/24/16 09:16 Blood leukocytes automated count (number/volume) 7.6 10*3/uL 4.3-11.0 Blood erythrocytes automated count (number/volume) 4.99 10*6/uL 4.35-5.85 Venous blood hemoglobin measurement (mass/volume) 15.5 g/dL 13.3-17.7 Blood hematocrit (volume fraction) 45 % 40-54 Automated erythrocyte mean corpuscular volume 89 [foz_us] 80-99 Automated erythrocyte mean corpuscular hemoglobin (mass per erythrocyte) 31 pg 25-34 Automated erythrocyte mean corpuscular hemoglobin concentration measurement ( mass/volume) 35 g/dL 32-36 Automated erythrocyte distribution width ratio 12.9 % 10.0-14.5 Automated blood platelet count (count/volume) 215 10*3/uL 130-400 Automated blood platelet mean volume measurement 10.9 [foz_us] 7.4-10.4 PT panel in platelet poor plasma by coagulation assay - 02/24/16 09:16 Prothrombin time (PT) in platelet poor plasma by coagulation assay 11.8 s 12.2-14.7 INR in platelet poor plasma or blood by coagulation assay 0.9 0.8-1.4 Activated partial thromboplastin time (aPTT) in platelet poor plasma bycoagulation assay - 02/24/16 09:16 Activated partial thromboplastin time (aPTT) in platelet poor plasma bycoagulation assay 26 s 24-35 Comprehensive metabolic panel - 02/24/16 09:16 Serum or plasma sodium measurement (moles/volume) 141 mmol/L 135-145 Serum or plasma potassium measurement (moles/volume) 4.0 mmol/L 3.6-5.0 Serum or plasma chloride measurement (moles/volume) 106 mmol/L 98-107 Carbon dioxide 27 mmol/L 21-32 Serum or plasma anion gap determination (moles/volume) 8 mmol/L 5-14 Serum or plasma urea nitrogen measurement (mass/volume) 17 mg/dL 7-18 Serum or plasma creatinine measurement (mass/volume) 0.98 mg/dL 0.60-1.30 Serum or plasma urea nitrogen/creatinine mass ratio 17 NRG Serum or plasma creatinine measurement with calculation of estimated glomerular filtration rate > NRG Serum or plasma glucose measurement (mass/volume) 87 mg/dL 70-105 Serum or plasma calcium measurement (mass/volume) 8.6 mg/dL 8.5-10.1 Serum or plasma total bilirubin measurement (mass/volume) 0.6 mg/dL 0.1-1.0 Serum or plasma alkaline phosphatase measurement (enzymatic activity/volume) 88 U/L 40-136 Serum or plasma aspartate aminotransferase measurement (enzymatic activity/ volume) 57 U/L 5-34 Serum or plasma alanine aminotransferase measurement (enzymatic activity/volume ) 80 U/L 0-55 Serum or plasma protein measurement (mass/volume) 6.6 g/dL 6.4-8.2 Serum or plasma albumin measurement (mass/volume) 4.1 g/dL 3.2-4.5 Lipid 1996 panel - 02/24/16 09:16 Serum or plasma triglyceride measurement (mass/volume) 138 mg/dL <150 Serum or plasma cholesterol measurement (mass/volume) 284 mg/dL < 200 Serum or plasma cholesterol in HDL measurement (mass/volume) 59 mg/ dL 40-60 Cholesterol in LDL [mass/volume] in serum or plasma by direct assay 196 mg/dL 1-129 Serum or plasma cholesterol in VLDL measurement (mass/volume) 28 mg/ dL 5-40 Methicillin resistant Staphylococcus aureus (MRSA) screening culture - 09:16 Methicillin resistant Staphylococcus aureus (MRSA) screening culture NEG NRG Encounters ACCT No. Visit Date/Time Discharge Status Pt. Type Provider Facility Loc./Unit Complaint [id number] 12/08/2010 15:57:00 12/08/2010 23:59:59 CLS Outpatient [id number] 04/18/2017 05:48:00 04/18/2017 15:29:00 DIS Outpatient JANUSZ CANTU MD [facility] PREOP COLONOSCOPY [id number] 05/05/2016 05:40:00 05/05/2016 23:59:59 CLS Outpatient OTHER, UNLISTED [facility] CARD CHRONIC CHEST WALL PAIN [id number] 02/24/2016 08:47:00 02/24/2016 15:45:00 DIS Outpatient MELINDA BAILEY [facility] CATH ANGINA,CAD,HTN,SOB, FATIGUE [id number] 02/16/2016 13:28:00 02/16/2016 16:29:00 DIS Emergency BEL CASSIDY DO [facility] ER CHEST PAIN [id number] 08/28/2015 12:52:00 08/28/2015 23:59:59 CLS Outpatient ION JENNINGS FACC, JOSELYN MUÑOZ CCDS [facility] RAD ATHEROSCLEROSIS OF [place] ARTERIES W/CLAUDICATION [id number] 08/04/2015 10:28:00 08/04/2015 23:59:59 CLS Outpatient ANA PAULA ALLEN MD [facility] LAB ARTIAL FIBRILLATION [id number] 10/22/2014 14:36:00 10/22/2014 17:10:00 DIS Emergency CEZAR ANDREWS MD [facility] ER IRR HEART RATE/CHEST PAIN [id number] 10/16/2014 09:45:00 10/16/2014 13:15:00 DIS Outpatient JOSELYN LEMON MD, FACC, FACP CCDS [facility] REHAB CAD, CHEST WALL PAIN, HTN, PVC [id number] 10/01/2014 21:03:00 10/02/2014 10:10:00 DIS Inpatient JOSELYN LEMON MD, FACC, FACP CCDS [facility] ICU AFIB,RVR [id number] 09/26/2014 21:30:00 09/27/2014 17:44:00 DIS Outpatient JOSELYN LEMON MD, FACCP CCDS [facility] CATH CP [id number] 08/19/2014 08:21:00 08/19/2014 23:59:59 CLS Outpatient IMAN LUNA MD [facility] RAD DISRUPTION OF INTERNAL OPERATION WOUND [id number] 06/20/2014 08:30:00 06/20/2014 23:59:59 CLS Preadmit ION JENNINGS FACC, ALI FACP CCDS [facility] CARD PALPITATIONS, CAD, CHEST WALL PAIN [id number] 06/17/2014 12:41:00 06/17/2014 23:59:59 CLS Outpatient ION JENNINGS FACAsmita, ALI FACP CCDS [facility] RAD CHEST WALL PAIN [id number] 05/06/2014 09:00:00 05/06/2014 23:59:59 CLS Preadmit OIN JENNINGS FACAsmita, ALI FACP CCDS [facility] CARD PALP [id number] 02/04/2014 08:46:00 05/05/2014 00:01:00 DIS Outpatient ION JENNINGS FACC, ALI FACP CCDS [facility] CARD PALP [id number] 01/03/2014 07:30:00 01/04/2014 11:03:00 DIS Outpatient ION JENNINGS FACC, ALI FACP CCDS [facility] CATH CP,HTN,HLP, CAD [id number] 11/13/2013 10:18:00 11/13/2013 23:59:59 CLS Outpatient DORIS BERG [facility] RAD STERNAL PAIN [id number] 08/01/2013 09:05:00 08/01/2013 23:59:59 CLS Outpatient DARIO ZARAGOZA MD [facility] CARD CP,CAD [id number] 03/04/2013 18:30:00 03/05/2013 13:03:00 DIS Inpatient ION JENNINGS FACC, ALI FACP CCDS [facility] ICU CHEST PAIN, SYNCOPE, HYPOTENSION [id number] 12/30/2012 08:50:00 12/30/2012 13:45:00 DIS Inpatient ION JENNINGS FACC, ALI FACP CCDS [facility] ICU CHEST PAIN [id number] 11/15/2012 08:44:00 11/15/2012 11:30:00 DIS Emergency TONY KLEIN DO [facility] ER DIZZY/SOA [id number] 10/26/2012 18:50:00 10/27/2012 12:00:00 DIS Outpatient ION JENNINGS FACC, JOSELYN MUÑOZ CCDS [facility] CATH CP [id number] 04/25/2017 11:00:00 PEN Preadmit PEPE JENNINGS, JANUSZ Phan [facility] ENDO SCREENING [id number] 12/13/2016 12:17:34 12/13/2016 23:59:59 JARRETT Outpatient Jc Mendez [id number] 12/06/2016 14:30:23 12/06/2016 23:59:59 JARRETT Outpatient Jc Mendez [id number] 11/29/2016 11:56:42 11/29/2016 23:59:59 Jc Yanes
[2017-04-25] MEDS ORDERED: NS IV 500 ML 500 ML IV PRN (07:40)
[2017-04-25 07:58] VITALS: BP 146/93
--- NOTE | 2017-04-25 08:59 | History & Physicial ---
History of Present Illness History of Present Illness Reason for visit/HPI to undergo screening colonoscopy Date of Admission 04/25/17 Date Seen by Provider: Apr 25, 2017 Time Seen by Provider: 08:57 I consulted on this patient on 04/25/17 08:57 Attending Physician Janusz Cantu MD Admitting Physician Miller Sullivan DO Consult Allergies and Home Medications Allergies Coded Allergies: No Known Drug Allergies (Unverified , 10/26/12) Home Medications Alprazolam 0.5 Mg Tablet, 0.25-0.5 MG PO BID PRN for ANXIETY, (Reported) TAKES 1/2 TO 1 (0.5MG) TABLET Amlodipine Besylate 2.5 Mg Tablet, 2.5 MG PO BID, (Reported) Apixaban 5 Mg Tablet, 5 MG PO BID, (Reported) Aspirin 81 Mg Tablet.dr, 81 MG PO DAILY, (Reported) Diphenhydramine HCl 25 Mg Capsule, 25-50 MG PO Q6H PRN for ALLERGIES, (Reported) Gabapentin 600 Mg Tablet, 600 MG PO TID, (Reported) Hydrocodone/Acetaminophen 1 Each Tablet, 1 TAB PO TID PRN for PAIN, (Reported) Lactobacillus Acidophilus 1 Each Capsule, 1 CAP PO DAILY, (Reported) Meloxicam 15 Mg Tablet, 15 MG PO DAILY, (Reported) Multivitamin 1 Each Tablet, 1 TAB PO DAILY, (Reported) Nitroglycerin 0.4 Mg Tab.subl, 0.4 MG SL UD PRN for CHEST PAIN, (Reported) [place]-3 Acid Ethyl Esters 1 Gm Capsule, 2 GM PO BID, (Reported) TAKES 2 (1GM) CAPSULES Tramadol HCl 50 Mg Tablet, 50 MG PO BID PRN for PAIN, (Reported) Past Ymmfhbb-Gcyumz-Tjwter Hx Patient Social History Alcohol Use: Rarely Uses Number of Drinks Today: 0 Recreational Drug Use: No Smoking Status: Never a Smoker Recent Foreign Travel: No Contact w/other who traveled: No Recent Hopitalizations: No Recent Infectious Disease Expo: No Immunizations Up To Date Tetanus Booster (TDap): Unknown Date of Influenza Vaccine: Mar 05, 2013 Seasonal Allergies Seasonal Allergies: No Surgeries Yes Appendectomy, Cardiac, CABG, Coronary Stent Respiratory No Cardiovascular Yes Atrial Fibrillation, Coronary Artery Disease, Heart Attack, High Cholesterol, Hypertension Neurological No Reproductive System Hx Reproductive Disorders: No Sexually Transmitted Disease: No HIV/AIDS: No Gastrointestinal No Irritable Bowel Musculoskeletal Yes Degenerate Disk Disease, Chronic Back Pain Endocrine History of Endocrine Disorders: No HEENT History of HEENT Disorders: Yes HEENT Disorders: Tinnitis Cancer No Psychosocial Behavioral Health Disorders: Anxiety Blood Transfusions Adverse Reaction to a Blood Tr: No Family Medical History Significant Family History: Heart Disease Family Hx: Cancer 19 FATHER Carotid stenosis 19 MOTHER Myocardial infarction G8 BROTHER PAD G8 SISTER Constitutional: no symptoms reported EENTM: no symptoms reported Respiratory: no symptoms reported Cardiovascular: no symptoms reported Gastrointestinal: no symptoms reported Genitourinary: no symptoms reported Musculoskeletal: back pain, joint pain Skin: no symptoms reported Psychiatric/Neurological: No Symptoms Reported Physical Exam Vital Signs Vital Sign - Last 12Hours 04/25/17 07:58 Temp 97.8 Pulse 60 Resp 16 B/P (MAP) 146/93 (110) Pulse Ox 95 O2 Delivery Room Air Capillary Refill : General Appearance: No Apparent Distress HEENT: Normal ENT Inspection Neck: Normal Inspection Respiratory: Lungs Clear Cardiovascular: No JVD Gastrointestinal: Non Tender, Soft Rectal: Deferred Extremity: Normal Inspection Neurologic/Psychiatric: Alert, Oriented x3 Skin: Warm/Dry Assessment/Plan Assessment and Plan gentleman for screening colonoscopy. Discussed in detail. Problems: JANUSZ CANTU MD Apr 25, 2017 8:59 am
--- NOTE | 2017-04-25 08:59 | Conscious Sedation/ASA ---
Conscious Sedation Pre-Proced Time Reviewed: 08:59 ASA Class: 3 Airway Mallampati Classification: (crow appropriate class) I. II. III, IV Lungs Heart ASA score ASA 1: a normal healthy patient ASA 2: a patient with a mild systemic disease (mid diabetes, controlled hypertension, obesity ASA 3: a patient with a severe systemic disease that limits activity (angina , COPD, prior Myocardial infarction) ASA 4: a patient with an incapacitating disease that is a constant threat to life (CHF, renal failure) ASA 5: a moribund patient not expected to survive 24 hrs. (ruptured aneurysm) ASA 6: a declared brain patient whose organs are being harvested. For emergent operations, add the letter E after the classification Grade 1 Sedation Plan: Discussed options with patient/fam Note The patient is an appropriate candidate to undergo the planned procedure, sedation, and anesthesia. The patient immediately re-assessed prior to indication. JANUSZ CANTU MD Apr 25, 2017 8:59 am
[2017-04-25] MEDS ORDERED: MIDAZOLAM 2 MG/2 ML (VERSED) VIAL ONE ×3 (09:03)
[2017-04-25] MEDS ORDERED: fentaNYL INJECTION 100 MCG/2 ML AMP ONE (09:03)
[2017-04-25] MEDS: fentaNYL INJECTION 100 MCG/2 ML AMP IVP PRN ×2 (09:23→09:33)
[2017-04-25] MEDS: MIDAZOLAM 2 MG/2 ML (VERSED) VIAL IVP PRN ×3 (09:25→09:35)
--- NOTE | 2017-04-25 09:51 | Endo Procedure Record ---
Endo Procedure Report Date of Procedure Apr 25, 2017 Surgeon (s) JANUSZ CANTU MD Post Procedure/Op Diagnosis very few sigmoid diverticula Procedure Performed colonoscopy to cecum Description of Procedure Anesthesia Type: Conscious Sedation Specimen(s) collected/removed none Description of the Procedure Indication for procedure: This gentleman came in for screening colonoscopy. He denied any family history of colon cancer or polyps. Informed consent was obtained after reviewing the procedure in detail. Description of the procedure: He was placed in left lateral decubitus position and his vital signs were monitored. Conscious sedation was achieved using Versed and fentanyl. Digital rectal examination was unremarkable. The colonoscope was then introduced into the rectum and advanced all the way up to the cecum. The quality of bowel preparation was reasonable. The scope was then withdrawn slowly and the mucosa examined in a systematic fashion Findin. anal skin tags of consequence. 2.Very few, sigmoid diverticula. He tolerated the procedure well and was taken back to the nursing area in a stable condition. Impression: Screening colonoscopy. No polyps. No family history. Recommend repeating in 10 years. Copies To: LEX CR MD, XAVIER M MD Apr 25, 2017 9:51 am
--- NOTE | 2017-04-25 09:53 | Discharge Inst-Simple/Standard ---
Discharge Inst-Standard Discharge Medications New, Converted or Re-Newed RX: Other Patient Instructions/Follow Up Plan of Care/Instructions/FU: repeat colonoscopy in 10 years Activity as Tolerated: Yes Discharge Diet: No Restrictions JANUSZ CANTU MD Apr 25, 2017 9:53 am
[2017-04-25 09:56] VITALS: BP 124/62
[2017-04-25 10:30] VITALS: BP 142/82
[2017-04-25 10:45] VITALS: BP 142/82
== END 2017-04-25 10:45 | disposition home or self-care (01) ==
LOC: ENDO 07:30
PROVIDERS: ATTEND Surgery
DX: Z12.11 Encounter for screening for malignant neoplasm of colon (principal); K57.30 Diverticulosis of large intestine without perforation or abscess without bleeding; I48.91 Unspecified atrial fibrillation; I25.10 Atherosclerotic heart disease of native coronary artery without angina pectoris; E78.00 Pure hypercholesterolemia, unspecified; I10 Essential (primary) hypertension; I25.2 Old myocardial infarction; Z95.1 Presence of aortocoronary bypass graft; Z95.5 Presence of coronary angioplasty implant and graft

== ENCOUNTER → 2017-09-27 | Outpatient (CLI) | payer BC ==
[~2017-09-27] MED LIST changes: +ACHD5005 PO; -HYDR-3812 PO
== END ==
LOC: RAD 12:44
PROVIDERS: ATTEND Internal Medicine Cardiovascular Disease
DX: I73.9 Peripheral vascular disease, unspecified (principal); I65.23 Occlusion and stenosis of bilateral carotid arteries; I10 Essential (primary) hypertension
CPT/HCPCS: 93923

== ENCOUNTER → 2018-09-26 | Outpatient (CLI) | payer BC ==
[~2018-09-26] VITALS: Ht 177.8 cm; Wt 77.6 kg
[~2018-09-26] MED LIST changes: -AMLO2.5T PO; +AMLO2.5T4 PO; +CATHETER FLUSH 10 ML SYR IV PRN; -GABA600T2 PO; +GBPN600T PO; +ONDANSETRON 4 MG/2 ML (SDV) Z0FRAN IVP ONE; +ONDANSETRON 4 MG/2 ML (SDV) Z0FRAN ONE; +REGADENOSON 0.4 MG/5 ML SYR (LEXISCAN) IV ONE
[2018-09-26 09:32] VITALS: BP 93/60
[2018-09-26 09:36] VITALS: BP 93/60
[2018-09-26 09:38] VITALS: BP 102/52
[2018-09-26 10:02] LABS: BASOPHILS % (AUTO) 0 % (0-10); EOSINOPHILS # (AUTO) 0.1 10^3/uL (0.0-0.3); EOSINOPHILS % (AUTO) 1 % (0-10); HEMATOCRIT 41 % (40-54); HEMOGLOBIN 13.8 G/DL (13.3-17.7); LYMPHOCYTES # (AUTO) 1.6 X 10^3 (1.0-4.0); LYMPHOCYTES % (AUTO) 33 % (12-44); MEAN CORPUSCULAR HEMOGLOBIN 30 PG (25-34); MEAN CORPUSCULAR HGB CONC 34 G/DL (32-36); MEAN CORPUSCULAR VOLUME 88 FL (80-99); MEAN PLATELET VOLUME 11.9 FL (7.4-10.4); MONOCYTES # (AUTO) 0.3 X 10^3 (0.0-1.0); MONOCYTES % (AUTO) 6 % (0-12); NEUTROPHILS # (AUTO) 2.9 X 10^3 (1.8-7.8); NEUTROPHILS % (AUTO) 59 % (42-75); PLATELET COUNT 193 10^3/uL (130-400); RED CELL DISTRIBUTION WIDTH 12.9 % (10.0-14.5); WHITE BLOOD COUNT 4.8 10^3/uL (4.3-11.0)
[2018-09-26 10:19] LABS: ALANINE AMINOTRANSFERASE 21 U/L (0-55); ALBUMIN 3.9 GM/DL (3.2-4.5); ALKALINE PHOSPHATASE 77 U/L (40-136); BILIRUBIN,TOTAL 0.5 MG/DL (0.1-1.0); BUN/CREATININE RATIO 16; CALCIUM 8.7 MG/DL (8.5-10.1); CARBON DIOXIDE 24 MMOL/L (21-32); CHLORIDE 109 MMOL/L (98-107); CHOLESTEROL 234 MG/DL (< 200); CREATININE SERUM 0.94 MG/DL (0.60-1.30); GFR ESTIMATED > 60; GLUCOSE 116 MG/DL (70-105); HDL CHOLESTEROL 54 MG/DL (40-60); MAGNESIUM 2.5 MG/DL (1.8-2.4); POTASSIUM 4.1 MMOL/L (3.6-5.0); SODIUM 142 MMOL/L (135-145); TOTAL PROTEIN 6.1 GM/DL (6.4-8.2); TRIGLYCERIDES 114 MG/DL (<150); VLDL CHOLESTEROL 23 MG/DL (5-40)
[2018-09-26 11:38] LABS: ERYTHROCYTE SEDIMENTATION RATE 3 MM/HR (0-30)
== END ==
LOC: CARD 07:39
PROVIDERS: ATTEND Internal Medicine Cardiovascular Disease
DX: I25.10 Atherosclerotic heart disease of native coronary artery without angina pectoris (principal); I77.89 Other specified disorders of arteries and arterioles; I48.0 Paroxysmal atrial fibrillation
CPT/HCPCS: 36415; 78452; 80053; 80061; 83735; 84443; 85025; 85652; 93017

== ENCOUNTER 2020-07-03 17:00 | Observation (INO) | payer BC ==
[~2020-07-03] VITALS: Ht 177.8 cm; Wt 81.4 kg
[~2020-07-03 17:00] MED LIST changes: +ASPI-1238 PO; -ASPI-983 PO; -CATHETER FLUSH 10 ML SYR IV PRN; -METO-387 PO; +MTP25TSR PO; +OMEG-218 PO; -OMEP20CA12 PO; +OMEP20CA18 PO; -ONDANSETRON 4 MG/2 ML (SDV) Z0FRAN IVP ONE; -ONDANSETRON 4 MG/2 ML (SDV) Z0FRAN ONE; -REGADENOSON 0.4 MG/5 ML SYR (LEXISCAN) IV ONE; -TRAM50TA2 PO; +TRM50T PO
[2020-07-03] MEDS ORDERED: ASPIRIN 81 MG CHEW (CHILDREN'S ASA) PO ONE (17:15)
[2020-07-03] MEDS ORDERED: NITROGLYCERIN 0.4 MG SL TABS BTL 25'S SL ONE (17:15)
[2020-07-03 17:20] LABS: BASOPHILS % (AUTO) 0 % (0-10); EOSINOPHILS # (AUTO) 0.1 10^3/uL (0.0-0.3); EOSINOPHILS % (AUTO) 1 % (0-10); HEMATOCRIT 44 % (40-54); HEMOGLOBIN 14.8 g/dL (13.3-17.7); LYMPHOCYTES # (AUTO) 2.1 10^3/uL (1.0-4.0); LYMPHOCYTES % (AUTO) 31 % (12-44); MEAN CORPUSCULAR HEMOGLOBIN 30 pg (25-34); MEAN CORPUSCULAR HGB CONC 34 g/dL (32-36); MEAN CORPUSCULAR VOLUME 89 fL (80-99); MONOCYTES # (AUTO) 0.4 10^3/uL (0.0-1.0); MONOCYTES % (AUTO) 5 % (0-12); NEUTROPHILS # (AUTO) 4.3 10^3/uL (1.8-7.8); NEUTROPHILS % (AUTO) 62 % (42-75); PLATELET COUNT 236 10^3/uL (130-400); WHITE BLOOD COUNT 6.9 10^3/uL (4.3-11.0)
--- NOTE | 2020-07-03 17:30 | ED Chest Pain ---
General Chief Complaint: Chest Pain Stated Complaint: CHEST PAIN History of Present Illness Date Seen by Provider: Jul 03, 2020 Time Seen by Provider: 17:00 Initial Comments 64-year-old male presents for chest pain that he reports has been pr esent intermittently for approximately 8 years, worse over the last few months. However today it became worse and causing him to have difficulty taking deep breath. He went to [place] to see a painter and body work today for the symptoms. He was then shopping in [place] when the pain became more severe. He tried to go home and was worsen he took 2 nitroglycerins at 1630 and his pain went from an 8 to a 6 (his Nitro in Dec 2019). However his pain has returned to an 8. He had a CABG in 2012. 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 He denies any nausea or vomiting. He takes aspirin 81 mg daily and Eliquis daily. Timing/Duration: 4-6 hours, intermittent Severity/Quality: moderate Location: substernal Radiation: jaw, neck Prior CP/Workup: cardiac cath, heart attack, stress test ASA po AUCTION BLOCK CLERK: No NTG SL AUCTION BLOCK CLERK: Yes Associated Symptoms: No abdominal pain, No back pain, No fatigue, No nausea/vomiting; shortness of breath Allergies and Home Medications Allergies Coded Allergies: No Known Drug Allergies (Unverified , 10/26/12) Home Medications Alprazolam 0.5 Mg Tablet, 0.25-0.5 MG PO BID PRN for ANXIETY, (Reported) TAKES 1/2 TO 1 (0.5MG) TABLET Amlodipine Besylate 2.5 Mg Tablet, 2.5 MG PO BID, (Reported) Apixaban 5 Mg Tablet, 5 MG PO BID, (Reported) Aspirin 81 Mg Tablet.dr, 81 MG PO DAILY, (Reported) Diphenhydramine HCl 25 Mg Capsule, 25-50 MG PO Q6H PRN for ALLERGIES, (Reported) Gabapentin 600 Mg Tablet, 600 MG PO TID, (Reported) Hydrocodone Bit/Acetaminophen 1 Each Tablet, 1 TAB PO TID PRN for PAIN, (Reported) Lactobacillus Acidophilus 1 Each Capsule, 1 CAP PO DAILY, (Reported) Meloxicam 15 Mg Tablet, 15 MG PO DAILY, (Reported) Multivitamin 1 Each Tablet, 1 TAB PO DAILY, (Reported) Nitroglycerin 0.4 Mg Tab.subl, 0.4 MG SL UD PRN for CHEST PAIN, (Reported) [place]-3 Acid Ethyl Esters 1 Gm Capsule, 2 GM PO BID, (Reported) TAKES 2 (1GM) CAPSULES Tramadol HCl 50 Mg Tablet, 50 MG PO BID PRN for PAIN, (Reported) Patient Home Medication List Home Medication List Reviewed: Yes Review of Systems Review of Systems Constitutional: no symptoms reported, see HPI Cardiovascular: See HPI, Chest Pain Gastrointestinal: No Symptoms Reported, See HPI; Denies Nausea All Other Systems Reviewed Negative Unless Noted: Yes Past Ixbtukp-Ebobda-Dsjwbu Hx Past Med/Social Hx: Reviewed Nursing Past Med/Soc Hx Patient Social History Recent Hopitalizations: No Immunizations Up To Date Tetanus Booster (TDap): Unknown Date of Influenza Vaccine: Mar 05, 2013 Seasonal Allergies Seasonal Allergies: No Past Medical History Surgeries: Yes Appendectomy, Cardiac, CABG, Coronary Stent Respiratory: No Cardiac: Yes Atrial Fibrillation, Coronary Artery Disease, Heart Attack, High Cholesterol, Hypertension Neurological: No Reproductive Disorders: No Sexually Transmitted Disease: No HIV/AIDS: No Gastrointestinal: No Irritable Bowel Musculoskeletal: Yes Degenerate Disk Disease, Chronic Back Pain Endocrine: No HEENT: Yes Tinnitis Cancer: No Anxiety Adverse Reaction/Blood Tranf: No Family Medical History Cancer 19 FATHER Carotid stenosis 19 MOTHER Myocardial infarction G8 BROTHER PAD G8 SISTER Heart Disease Physical Exam Vital Signs Vital Signs - First Documented 07/03/20 17:03 Temp 37.0 Pulse 79 Resp 18 B/P (MAP) 155/94 (114) Pulse Ox 98 O2 Delivery Room Air Capillary Refill : Height, Weight, BMI Height: 5'10.00" Weight: 171lbs. 0.0oz. 77.348589ev; 24.5 BMI Method:Stated General Appearance: WD/WN, Mild Distress HEENT: Normal ENT Inspection, Pharynx Normal Neck: Full Range of Motion, Normal Inspection, Supple Respiratory: Lungs Clear, Normal Breath Sounds, No Accessory Muscle Use Cardiovascular: Regular Rate, Rhythm, No Edema, No Murmur, Normal Peripheral Pulses Gastrointestinal: Normal Bowel Sounds, Non Tender, Soft Extremity: Normal Capillary Refill, Normal Inspection, Normal Range of Motion, No Pedal Edema Neurologic/Psychiatric: Alert, Oriented x3, No Motor/Sensory Deficits, Normal Mood/Affect Skin: Normal Color, Warm/Dry Progress/Results/Core Measures Results/Orders Lab Results Laboratory Tests Test 07/03/20 17:11 Range/Units White Blood Count 6.9 4.3-11.0 10^3/uL Red Blood Count 4.92 4.30-5.52 10^6/uL Hemoglobin 14.8 13.3-17.7 g/dL Hematocrit 44 40-54 % Mean Corpuscular Volume 89 80-99 fL Mean Corpuscular Hemoglobin 30 25-34 pg Mean Corpuscular Hemoglobin Concent 34 32-36 g/dL Red Cell Distribution Width 12.5 10.0-14.5 % Platelet Count 236 130-400 10^3/uL Mean Platelet Volume 11.0 9.0-12.2 fL Immature Granulocyte % (Auto) 0 % Neutrophils (%) (Auto) 62 42-75 % Lymphocytes (%) (Auto) 31 12-44 % Monocytes (%) (Auto) 5 0-12 % Eosinophils (%) (Auto) 1 0-10 % Basophils (%) (Auto) 0 0-10 % Neutrophils # (Auto) 4.3 1.8-7.8 10^3/uL Lymphocytes # (Auto) 2.1 1.0-4.0 10^3/uL Monocytes # (Auto) 0.4 0.0-1.0 10^3/uL Eosinophils # (Auto) 0.1 0.0-0.3 10^3/uL Basophils # (Auto) 0.0 0.0-0.1 10^3/uL Immature Granulocyte # (Auto) 0.0 0.0-0.1 10^3/uL Prothrombin Time 13.4 12.2-14.7 SEC INR Comment 1.0 0.8-1.4 Activated Partial Thromboplast Time 29 24-35 SEC Sodium Level 137 135-145 MMOL/L Potassium Level 3.5 L 3.6-5.0 MMOL/L Chloride Level 104 98-107 MMOL/L Carbon Dioxide Level 23 21-32 MMOL/L Anion Gap 10 5-14 MMOL/L Blood Urea Nitrogen 12 7-18 MG/DL Creatinine 1.02 0.60-1.30 MG/DL Estimat Glomerular Filtration Rate > 60 BUN/Creatinine Ratio 12 Glucose Level 197 H 70-105 MG/DL Calcium Level 8.6 8.5-10.1 MG/DL Corrected Calcium 8.4 L 8.5-10.1 MG/DL Magnesium Level 2.2 1.6-2.4 MG/DL Total Bilirubin 0.5 0.1-1.0 MG/DL Aspartate Amino Transf (AST/SGOT) 30 5-34 U/L Alanine Aminotransferase (ALT/SGPT) 26 0-55 U/L Alkaline Phosphatase 95 40-136 U/L Myoglobin 59.1 10.0-92.0 NG/ML Troponin I < 0.028 <0.028 NG/ML B-Type Natriuretic Peptide 47.8 <100.0 PG/ML Total Protein 6.9 6.4-8.2 GM/DL Albumin 4.2 3.2-4.5 GM/DL Coronavirus 2019 ([place]IG[place]) Negative Negative My Orders Orders - MARGARET MASSEY Cbc With Automated Diff (07/03/20 17:04) Magnesium (07/03/20 17:04) Chest 1 View, Ap/Pa Only (07/03/20 17:04) Ekg Tracing (07/03/20 17:04) Comprehensive Metabolic Panel (07/03/20 17:04) Myoglobin Serum (07/03/20 17:04) Protime With Inr (07/03/20 17:04) Partial Thromboplastin Time (07/03/20 17:04) O2 (07/03/20 17:04) Monitor-Rhythm Ecg Trace Only (07/03/20 17:04) Lipid Panel (07/04/20 06:00) Ed Iv/Invasive Line Start (07/03/20 17:04) BNP (07/03/20 17:04) Troponin I (07/03/20 17:04) Aspirin Chewable Tablet (Baby Aspirin Ch (07/03/20 17:15) Nitroglycerin 0.4 Mg Btl 25's (Nitrostat (07/03/20 17:15) Covid 19 Inhouse Test (07/03/20 17:14) Morphine Injection (Morphine Injection (07/03/20 18:00) Morphine Injection (Morphine Injection (07/03/20 17:54) Ns Iv 1000 Ml (Sodium Chloride 0.9%) (07/03/20 18:10) Medications Given in ED Current Medications Medications Dose Ordered Sig/Kaz Route Start Time Stop Time Status Last Admin Dose Admin Aspirin 324 mg ONCE ONCE PO 07/03/20 17:15 07/03/20 17:16 DC 07/03/20 17:27 324 MG Nitroglycerin 1 BOTTLE ONCE ONCE SL 07/03/20 17:15 07/03/20 17:16 DC 07/03/20 17:30 0.4 MG Sodium Chloride 1,000 ml @ ud STK-MED ONCE .ROUTE 07/03/20 18:10 07/03/20 18:16 DC 07/03/20 18:18 1,000 MLS/HR Vital Signs/I&O 07/03/20 07/03/20 17:03 18:22 Temp 37.0 Pulse 79 64 Resp 18 18 B/P (MAP) 155/94 (114) 103/72 (82) Pulse Ox 98 O2 Delivery Room Air Progress Progress Note : Time: 17:00 Progress Note Patient seen and evaluated, will obtain EKG, chest x-ray, and labs. Aspirin 324 mg orally. Patient is on Eliquis for history of A. fib. 1714 Repeat nitro, patient does report some improvement in his symptoms within 10 minutes. 1744 Patient reports pain has returned will give morphine 4 mg IV. And normal saline 1 L per IV. Rapid Covid negative. 183 Patient reports pain has improved but he also took another Nitro, from his home supply. Stressed that he needs to use his call light, if symptoms return. No complaints at this time. [address] Vishal Cr and Dr. Durán, agreed with plans to admit patient and monitor for serial troponins. Possible stress test tomorrow. Last stress test was in 2019. 1944 Patient ambulated to bathroom and return to room. Denies any pain and reports feeling better now than he has all day. Agreeable for admission. 2019 Patient has remained stable no further chest pain. Transferred to cardiac stepdown. Initial ECG Impression Date: Jul 03, 2020 Initial ECG Impression Time: 17:07 Initial ECG Rate: 74 Initial ECG Rhythm: Normal Sinus Initial ECG Intervals: Normal Initial ECG Intervals WI 176, QRSD 92, QT 412, QTc 457. [place] P 76, QRS 42, T 14. Initial ECG Impression: Normal Initial ECG Comparisson: Unchanged Diagnostic Imaging Diagonstic Imaging: Xray Plain Films/CT/US/NM/MRI: chest Comments NAME: DAVIDMYKETravon Noguera [facility] REC#: [id number] PT STATUS: REG ER : 1955 PHYSICIAN: MARGARET MASSEY ADMIT DATE: 07/03/20/ER Draft Date of Exam:07/03/20 CHEST 1 VIEW, AP/PA ONLY INDICATION: Chest pain. COMPARISON: 02/16/2016. EXAMINATION: Single view of the chest was obtained. FINDINGS: Stable cardiac enlargement. Lungs are clear. There is no pneumothorax. Postoperative changes are seen in the mediastinum. Osseous structures are age-appropriate. IMPRESSION: Stable cardiac enlargement without pulmonary edema or acute infiltrate. Dictated on workstation # [id number] Dict: 07/03/201748 Trans: 07/03/201751 [facility] [id number] Interpreted by: ZOEY ROONEY Electronically signed by: Reviewed: Reviewed by Me Departure Impression Primary Impression: Chest pain Qualified Codes: R07.9 - Chest pain, unspecified Additional Impression: CAD (coronary artery disease) Qualified Codes: I25.708 - Atherosclerosis of coronary artery bypass graft(s), unspecified, with other forms of angina pectoris Disposition: ADMITTED INPATIENT Condition: Stable Admissions Decision to Admit Reason: Admit from ER (General) Decision to Admit/Date: Jul 03, 2020 Time/Decision to Admit Time: 19:00 Departure-Patient Inst. Referrals: VISHAL CR MD (PCP/Family) Primary Care Physician Copy Copies To 1: JOSELYN LEMON [facility] CCD[facility]; VISHAL CR MD, AMY ARNP Jul 03, 2020 17:30
[2020-07-03 17:31] LABS: ALBUMIN 4.2 GM/DL (3.2-4.5)
[2020-07-03 17:32] LABS: CHLORIDE 104 MMOL/L (98-107); POTASSIUM 3.5 MMOL/L (3.6-5.0); SODIUM 137 MMOL/L (135-145)
[2020-07-03 17:33] LABS: CALCIUM 8.6 MG/DL (8.5-10.1)
[2020-07-03 17:34] LABS: GLUCOSE 197 MG/DL (70-105); TOTAL PROTEIN 6.9 GM/DL (6.4-8.2)
[2020-07-03 17:35] LABS: CARBON DIOXIDE 23 MMOL/L (21-32)
[2020-07-03 17:36] LABS: BILIRUBIN,TOTAL 0.5 MG/DL (0.1-1.0)
[2020-07-03 17:37] LABS: ALKALINE PHOSPHATASE 95 U/L (40-136)
[2020-07-03 17:38] LABS: CREATININE SERUM 1.02 MG/DL (0.60-1.30); GFR ESTIMATED > 60
[2020-07-03 17:39] LABS: BUN/CREATININE RATIO 12
[2020-07-03 17:41] LABS: ALANINE AMINOTRANSFERASE 26 U/L (0-55); MAGNESIUM 2.2 MG/DL (1.6-2.4)
[2020-07-03 17:44] LABS: PROTHROMBIN TIME PATIENT 13.4 SEC (12.2-14.7)
--- NOTE | 2020-07-03 17:52 | Diagnostic Imaging Report ---
INDICATION: Chest pain. COMPARISON: 02/16/2016. EXAMINATION: Single view of the chest was obtained. FINDINGS: Stable cardiac enlargement. Lungs are clear. There is no pneumothorax. Postoperative changes are seen in the mediastinum. Osseous structures are age-appropriate. IMPRESSION: Stable cardiac enlargement without pulmonary edema or acute infiltrate. Dictated by: Dictated on workstation # [id number]
[2020-07-03] MEDS ORDERED: morphine INJ 10 MG/ML 1ML (SYR OR VIAL) IVP STA (17:54)
[2020-07-03] MEDS ORDERED: morphine INJ 4 MG/ML 1 ML (VIAL/SYRINGE) IVP ONE (18:00)
[2020-07-03] MEDS ORDERED: NS IV 1000 ML 1,000 ML ONE (18:10)
[2020-07-03 19:42] LABS: BILIRUBIN,URINE NEGATIVE (NEGATIVE); CLARITY,URINE CLEAR; COLOR,URINE YELLOW; GLUCOSE, URINE (UA) NEGATIVE (NEGATIVE); KETONES,URINE NEGATIVE (NEGATIVE); LEUKOCYTE ESTERASE ,URINE NEGATIVE (NEGATIVE); NITRITE,URINE NEGATIVE (NEGATIVE); PROTEIN,URINE NEGATIVE (NEGATIVE)
[2020-07-03 19:57] LABS: BACTERIA,URINE TRACE /HPF; HYALINE CASTS, URINE 0-2 /LPF; RBC,URINE RARE /HPF; WBC,URINE 0-2 /HPF
[2020-07-03 20:03] LABS: AMPHETAMINE SCREEN, URINE NEGATIVE (NEGATIVE); BARBITURATE SCREEN URINE NEGATIVE (NEGATIVE); BENZODIAZEPINES SCREEN URINE NEGATIVE (NEGATIVE); CANNABINOID SCREEN, URINE NEGATIVE (NEGATIVE); COCAINE SCREEN URINE NEGATIVE (NEGATIVE); METHADONE STAT NEGATIVE (NEGATIVE); METHAMPHETAMINE SCREEN URINE S NEGATIVE (NEGATIVE); OPIATE SCREEN URINE POSITIVE (NEGATIVE); OXYCODONE STAT NEGATIVE (NEGATIVE); PROPOXYPHENE STAT NEGATIVE (NEGATIVE); TRICYCLIC ANTIDEPRESSANTS SCRE NEGATIVE (NEGATIVE)
[2020-07-03 20:15] VITALS: BP 146/96
[2020-07-03] MEDS ORDERED: morphine INJ 4 MG/ML 1 ML (VIAL/SYRINGE) IVP PRN (21:30)
[2020-07-03] MEDS ORDERED: ONDANSETRON 4 MG/2 ML (SDV) Z0FRAN IVP PRN (21:30)
[2020-07-03] MEDS ORDERED: NS IV 1000 ML 1,000 ML IV SCH (21:30)
[2020-07-03] MEDS ORDERED: NITROGLYCERIN 0.4 MG SL TABS BTL 25'S SL PRN (21:30)
[2020-07-04 03:08] LABS: BASOPHILS % (AUTO) 1 % (0-10); EOSINOPHILS # (AUTO) 0.2 10^3/uL (0.0-0.3); EOSINOPHILS % (AUTO) 3 % (0-10); HEMATOCRIT 41 % (40-54); HEMOGLOBIN 13.8 g/dL (13.3-17.7); LYMPHOCYTES # (AUTO) 2.4 10^3/uL (1.0-4.0); LYMPHOCYTES % (AUTO) 40 % (12-44); MEAN CORPUSCULAR HEMOGLOBIN 30 pg (25-34); MEAN CORPUSCULAR HGB CONC 34 g/dL (32-36); MEAN CORPUSCULAR VOLUME 90 fL (80-99); MEAN PLATELET VOLUME 11.1 fL (9.0-12.2); MONOCYTES # (AUTO) 0.4 10^3/uL (0.0-1.0); MONOCYTES % (AUTO) 7 % (0-12); NEUTROPHILS % (AUTO) 50 % (42-75); PLATELET COUNT 205 10^3/uL (130-400); WHITE BLOOD COUNT 6.1 10^3/uL (4.3-11.0)
[2020-07-04 03:26] LABS: ALBUMIN 3.5 GM/DL (3.2-4.5); CHLORIDE 110 MMOL/L (98-107); POTASSIUM 3.7 MMOL/L (3.6-5.0); SODIUM 140 MMOL/L (135-145)
[2020-07-04 03:27] LABS: CALCIUM 7.8 MG/DL (8.5-10.1)
[2020-07-04 03:28] LABS: GLUCOSE 113 MG/DL (70-105); TRIGLYCERIDES 152 MG/DL (<150); VLDL CHOLESTEROL 30 MG/DL (5-40)
[2020-07-04 03:29] LABS: CARBON DIOXIDE 24 MMOL/L (21-32)
[2020-07-04 03:30] LABS: BILIRUBIN,TOTAL 0.3 MG/DL (0.1-1.0)
[2020-07-04 03:32] LABS: ALKALINE PHOSPHATASE 80 U/L (40-136); CREATININE SERUM 0.88 MG/DL (0.60-1.30); GFR ESTIMATED > 60
[2020-07-04 03:33] LABS: BUN/CREATININE RATIO 11; CHOLESTEROL 242 MG/DL (< 200)
[2020-07-04 03:34] LABS: HDL CHOLESTEROL 50 MG/DL (40-60)
[2020-07-04 03:35] LABS: ALANINE AMINOTRANSFERASE 22 U/L (0-55)
[2020-07-04 03:49] LABS: TOTAL PROTEIN 6.4 GM/DL (6.4-8.2)
[2020-07-04] MEDS ORDERED: ASPIRIN E.C. 325 MG (ECOTRIN) TABLET PO SCH (09:00)
--- NOTE | 2020-07-04 10:25 | Consultation-Cardiology ---
HPI-Cardiology Cardiology Consultation Date of Consultation 07/04/20 Date of Admission Time Seen by Provider: 10:21 Indication: chest pain HPI 64 years old gentleman with history of coronary artery disease, CABG, post bypass surgery has been having chronic chest pain with sternal pain. Was seen at [facility], had extensive workup in the past. He was at the pain management clinic in [place] yesterday, he was denied some pain medication, start to have worsening chest pain, more significant and severe in the retrosternal area and left sided area, came into the emergency room for evaluation. He has been having neck pain which made him more concern. On arrival he was given nitroglycerin and morphine with some improvement in the pain, did not disappear fully. On my evaluation was feeling better. We had a long discussion about his management plan and I offered him stress test or a cardiac catheter, patient preferred to wait at this time and discuss it with Dr. Meléndez, I indicated to him that his cardiac enzymes and EKG are normal. It is safe for him to be discharged and follow-up next week with Dr. Meléndez Home Medications & Allergies Allergies: Coded Allergies: No Known Drug Allergies (Unverified , 10/26/12) Home Medication List Reviewed: Yes [id number] Hx Patient Social History Marital Status: Recreational Drug Use: No Smoking Status: Never a Smoker Recent Hopitalizations: No Have you traveled recently?: No Alcohol Use?: No Immunizations Up To Date Tetanus Booster (TDap): Unknown Date of Influenza Vaccine: Mar 05, 2013 Past Medical History Discussed below Family Medical History Significant Family History: Heart Disease Family History: Cancer 19 FATHER Carotid stenosis 19 MOTHER Myocardial infarction G8 BROTHER PAD G8 SISTER Review of Systems-General Review of Systems Constitutional: no symptoms reported, see HPI EENTM: see HPI, no symptoms reported Respiratory: no symptoms reported, see HPI Cardiovascular: see HPI, chest pain; No edema, No Hx of Intervention, No palpit ations, No syncope, No vascular heart diseas, No other Gastrointestinal: no symptoms reported, see HPI Genitourinary: no symptoms reported, see HPI Musculoskeletal: see HPI, back pain Skin: no symptoms reported, see HPI Psychiatric/Neurological: No Symptoms Reported, See HPI All Other Systems Reviewed Negative Unless Noted: Yes Reviewed Test Results Reviewed Test Results Lab Laboratory Tests Test 07/03/20 17:11 07/03/20 19:34 07/03/20 22:52 07/04/20 03:00 Range/Units White Blood Count 6.9 6.1 4.3-11.0 10^3/uL Red Blood Count 4.92 4.54 4.30-5.52 10^6/uL Hemoglobin 14.8 13.8 13.3-17.7 g/dL Hematocrit 44 41 40-54 % Mean Corpuscular Volume 89 90 80-99 fL Mean Corpuscular Hemoglobin 30 30 25-34 pg Mean Corpuscular Hemoglobin Concent 34 34 32-36 g/dL Red Cell Distribution Width 12.5 12.5 10.0-14.5 % Platelet Count 236 205 130-400 10^3/uL Mean Platelet Volume 11.0 11.1 9.0-12.2 fL Immature Granulocyte % (Auto) 0 0 % Neutrophils (%) (Auto) 62 50 42-75 % Lymphocytes (%) (Auto) 31 40 12-44 % Monocytes (%) (Auto) 5 7 0-12 % Eosinophils (%) (Auto) 1 3 0-10 % Basophils (%) (Auto) 0 1 0-10 % Neutrophils # (Auto) 4.3 3.0 1.8-7.8 10^3/uL Lymphocytes # (Auto) 2.1 2.4 1.0-4.0 10^3/uL Monocytes # (Auto) 0.4 0.4 0.0-1.0 10^3/uL Eosinophils # (Auto) 0.1 0.2 0.0-0.3 10^3/uL Basophils # (Auto) 0.0 0.0 0.0-0.1 10^3/uL Immature Granulocyte # (Auto) 0.0 0.0 0.0-0.1 10^3/uL Prothrombin Time 13.4 12.2-14.7 SEC INR Comment 1.0 0.8-1.4 Activated Partial Thromboplast Time 29 24-35 SEC Sodium Level 137 140 135-145 MMOL/L Potassium Level 3.5 L 3.7 3.6-5.0 MMOL/L Chloride Level 104 110 H 98-107 MMOL/L Carbon Dioxide Level 23 24 21-32 MMOL/L Anion Gap 10 6 5-14 MMOL/L Blood Urea Nitrogen 12 10 7-18 MG/DL Creatinine 1.02 0.88 0.60-1.30 MG/DL Estimat Glomerular Filtration Rate > 60 > 60 BUN/Creatinine Ratio 12 11 Glucose Level 197 H 113 H 70-105 MG/DL Calcium Level 8.6 7.8 L 8.5-10.1 MG/DL Corrected Calcium 8.4 L 8.2 L 8.5-10.1 MG/DL Magnesium Level 2.2 1.6-2.4 MG/DL Total Bilirubin 0.5 0.3 0.1-1.0 MG/DL Aspartate Amino Transf (AST/SGOT) 30 24 5-34 U/L Alanine Aminotransferase (ALT/SGPT) 26 22 0-55 U/L Alkaline Phosphatase 95 80 40-136 U/L Myoglobin 59.1 10.0-92.0 NG/ML Troponin I < 0.028 < 0.028 <0.028 NG/ML B-Type Natriuretic Peptide 47.8 <100.0 PG/ML Total Protein 6.9 6.4 6.4-8.2 GM/DL Albumin 4.2 3.5 3.2-4.5 GM/DL Coronavirus 2019 (LIGIA) Negative Negative Urine Color YELLOW Urine Clarity CLEAR Urine pH 7.0 5-9 Urine Specific [place] 1.015 L 1.016-1.022 Urine Protein NEGATIVE NEGATIVE Urine Glucose (UA) NEGATIVE NEGATIVE Urine Ketones NEGATIVE NEGATIVE Urine Nitrite NEGATIVE NEGATIVE Urine Bilirubin NEGATIVE NEGATIVE Urine Urobilinogen 0.2 < = 1.0 MG/DL Urine Leukocyte Esterase NEGATIVE NEGATIVE Urine RBC (Auto) NEGATIVE NEGATIVE Urine RBC RARE /HPF Urine WBC 0-2 /HPF Urine Crystals NONE /LPF Urine Bacteria TRACE /HPF Urine Casts PRESENT /LPF Urine Hyaline Casts 0-2 H /LPF Urine Mucus NEGATIVE /LPF Urine Culture Indicated NO Urine Opiates Screen POSITIVE H NEGATIVE Urine Oxycodone Screen NEGATIVE NEGATIVE Urine Methadone Screen NEGATIVE NEGATIVE Urine Propoxyphene Screen NEGATIVE NEGATIVE Urine Barbiturates Screen NEGATIVE NEGATIVE Ur Tricyclic Antidepressants Screen NEGATIVE NEGATIVE Urine Phencyclidine Screen NEGATIVE NEGATIVE Urine Amphetamines Screen NEGATIVE NEGATIVE Urine Methamphetamines Screen NEGATIVE NEGATIVE Urine Benzodiazepines Screen NEGATIVE NEGATIVE Urine Cocaine Screen NEGATIVE NEGATIVE Urine Cannabinoids Screen NEGATIVE NEGATIVE Triglycerides Level 152 H <150 MG/DL Cholesterol Level 242 H < 200 MG/DL LDL Cholesterol Direct 181 H 1-129 MG/DL VLDL Cholesterol 30 5-40 MG/DL HDL Cholesterol 50 40-60 MG/DL Physical Exam Physical Exam Vital Signs Vital Signs - First Documented 07/03/20 17:03 Temp 37.0 Pulse 79 Resp 18 B/P (MAP) 155/94 (114) Pulse Ox 98 O2 Delivery Room Air Capillary Refill : Less Than 3 Seconds Height, Weight, BMI Height: 5'10.00" Weight: 171lbs. 0.0oz. [id number]; 26.57 BMI Method:Stated General Appearance: WD/WN, Mild Distress Eyes: Bilateral Eye Normal Inspection, Bilateral Eye PERRL, Bilateral Eye EOMI HEENT: Normal ENT Inspection, Pharynx Normal Neck: Full Range of Motion, Normal Inspection, Supple Respiratory: Lungs Clear, Normal Breath Sounds, No Accessory Muscle Use Cardiovascular: Regular Rate, Rhythm, No Edema, No Murmur, Normal Peripheral Pulses Gastrointestinal: Normal Bowel Sounds, Non Tender, Soft Back: Normal Inspection, No CVA Tenderness, No Vertebral Tenderness Extremity: Normal Capillary Refill, Normal Inspection, Normal Range of Motion, No Pedal Edema Neurologic/Psychiatric: Alert, Oriented x3, No Motor/Sensory Deficits, Normal Mood/Affect Skin: Normal Color, Warm/Dry Lymphatic: No Adenopathy A/P-Cardiology Admission Diagnosis Chest pain Coronary artery disease Hypertension Hyperlipidemia Assessment/Plan Coronary artery disease, history of CABG 3, stent to the right coronary artery after failure of the bypass to the right coronary artery, last cardiac catheterization 2015 showed patent [place] to LAD vein graft to diagonal artery and vein graft to the obtuse marginal artery. Has been having chronic chest pain, last stress test in January 2019. Chest pain appeared to be muscular skeletal, cardiac enzymes and EKG are normal, patient cannot tolerate Lexiscan stress test. Discussed the management plan recommended repeating exercise stress test versus doing cardiac catheter, it can be done as an outpatient, patient will follow-up with Dr. Meléndez. History of paroxysmal atrial fibrillation. Currently in sinus rhythm Hypertension, restart home medication monitor blood pressure Hyperlipidemia, restart medication and follow-up as an outpatient next Okay for discharge from cardiology standpoint Clinical Quality Measures AMI/AHF: ASA po Prior to arrival: JAKE Frank MD Jul 04, 2020 10:25 am
[2020-07-04] MEDS ORDERED: PANT40SU PO (10:26)
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
--- NOTE | 2020-07-04 11:45 | Discharge Summary ---
Discharge Summary Hospital Course Was the Problem List Reviewed?: Yes Problems/Dx: (1) Chest pain Status: Acute Qualifiers: Qualified Codes: R07.9 - Chest pain, unspecified (2) Hypocalcemia (3) Chest wall pain Status: Acute (4) Hypokalemia Status: Resolved (5) CAD (coronary artery disease) Qualifiers: Qualified Codes: I25.708 - Atherosclerosis of coronary artery bypass graft(s), unspecified, with other forms of angina pectoris (6) HTN (hypertension) Status: Acute Qualifiers: Qualified Codes: I10 - Essential (primary) hypertension Hospital Course Date of Admission: Jul 03, 2020 at 19:00 Admission Diagnosis : see hpi Family Physician/Provider: Vishal Tracey MD Date of Discharge: 07/04/20 Discharge Diagnosis: see hpi Hospital Course: see hpi Labs and Pending Lab Test: Laboratory Tests 07/03/20 17:11: White Blood Count 6.9, Red Blood Count 4.92, Hemoglobin 14.8, Hematocrit 44, Mean Corpuscular Volume 89, Mean Corpuscular Hemoglobin 30, Mean Corpuscular Hemoglobin Concent 34, Red Cell Distribution Width 12.5, Platelet Count 236, Mean Platelet Volume 11.0, Immature Granulocyte % (Auto) 0, Neutrophils (%) (Auto) 62, Lymphocytes (%) (Auto) 31, Monocytes (%) (Auto) 5, Eosinophils (%) (Auto) 1, Basophils (%) (Auto) 0, Neutrophils # (Auto) 4.3, Lymphocytes # (Auto) 2.1, Monocytes # (Auto) 0.4, Eosinophils # (Auto) 0.1, Basophils # (Auto) 0.0, Immature Granulocyte # (Auto) 0.0, Prothrombin Time 13.4, INR Comment 1.0, Activated Partial Thromboplast Time 29, Sodium Level 137, Potassium Level 3.5L, Chloride Level 104, Carbon Dioxide Level 23, Anion Gap 10, Blood Urea Nitrogen 12, Creatinine 1.02, Estimat Glomerular Filtration Rate > 60, BUN/Creatinine Ratio 12, Glucose Level 197H, Calcium Level 8.6, Corrected Calcium 8.4L, Magnesium Level 2.2, Total Bilirubin 0.5, Aspartate Amino Transf (AST/SGOT) 30, Alanine Aminotransferase (ALT/SGPT) 26, Alkaline Phosphatase 95, Myoglobin 59.1, Troponin I < 0.028, B-Type Natriuretic Peptide 47.8, Total Protein 6.9, Albumin 4.2, Coronavirus 2019 (LIGIA) Negative 07/03/20 19:34: Urine Color YELLOW, Urine Clarity CLEAR, Urine pH 7.0, Urine Specific [place] 1.015L, Urine Protein NEGATIVE, Urine Glucose (UA) NEGATIVE, Urine Ketones NEGATIVE, Urine Nitrite NEGATIVE, Urine Bilirubin NEGATIVE, Urine Urobilinogen 0.2, Urine Leukocyte Esterase NEGATIVE, Urine RBC (Auto) NEGATIVE, Urine RBC RARE, Urine WBC 0-2, Urine Crystals NONE, Urine Bacteria TRACE, Urine Casts PRESENT, Urine Hyaline Casts 0-2H, Urine Mucus NEGATIVE, Urine Culture Indicated NO, Urine Opiates Screen POSITIVEH, Urine Oxycodone Screen NEGATIVE, Urine Methadone Screen NEGATIVE, Urine Propoxyphene Screen NEGATIVE, Urine Ba rbiturates Screen NEGATIVE, Ur Tricyclic Antidepressants Screen NEGATIVE, Urine Phencyclidine Screen NEGATIVE, Urine Amphetamines Screen NEGATIVE, Urine Methamphetamines Screen NEGATIVE, Urine Benzodiazepines Screen NEGATIVE, Urine Cocaine Screen NEGATIVE, Urine Cannabinoids Screen NEGATIVE 07/03/20 22:52: Troponin I < 0.028 07/04/20 03:00: White Blood Count 6.1, Red Blood Count 4.54, Hemoglobin 13.8, Hematocrit 41, Mean Corpuscular Volume 90, Mean Corpuscular Hemoglobin 30, Mean Corpuscular Hemoglobin Concent 34, Red Cell Distribution Width 12.5, Platelet Count 205, Mean Platelet Volume 11.1, Immature Granulocyte % (Auto) 0, Neutrophils (%) (Auto) 50, Lymphocytes (%) (Auto) 40, Monocytes (%) (Auto) 7, Eosinophils (%) (Auto) 3, Basophils (%) (Auto) 1, Neutrophils # (Auto) 3.0, Lymphocytes # (Auto) 2.4, Monocytes # (Auto) 0.4, Eosinophils # (Auto) 0.2, Basophils # (Auto) 0.0, Immature Granulocyte # (Auto) 0.0, Sodium Level 140, Potassium Level 3.7, Chloride Level 110H, Carbon Dioxide Level 24, Anion Gap 6, Blood Urea Nitrogen 10, Creatinine 0.88, Estimat Glomerular Filtration Rate > 60, BUN/Creatinine Ratio 11, Glucose Level 113H, Calcium Level 7.8L, Corrected Calcium 8.2L, Total Bilirubin 0.3, Aspartate Amino Transf (AST/SGOT) 24, Alanine Aminotransferase (ALT/SGPT) 22, Alkaline Phosphatase 80, Total Protein 6.4, Albumin 3.5, Triglycerides Level 152H, Cholesterol Level 242H, LDL Cholesterol Direct 181H, VLDL Cholesterol 30, HDL Cholesterol 50 Home Meds Active Protonix (Pantoprazole Sodium) 40 Mg Granpkt.dr 40 Mg PO DAILY Reported Amlodipine Besylate 2.5 Mg Tablet 2.5 Mg PO BID Aspir 81 (Aspirin) 81 Mg Tablet.dr 81 Mg PO DAILY Gabapentin 600 Mg Tablet 600 Mg PO TID Probiotic (Lactobacillus Acidophilus) 1 Each Capsule 1 Cap PO DAILY Daily Value (Multivitamin) 1 Each Tablet 1 Tab PO DAILY Benadryl (Diphenhydramine HCl) 25 Mg Capsule 25-50 Mg PO Q6H PRN Alprazolam 0.5 Mg Tablet 0.25-0.5 Mg PO BID PRN TAKES 1/2 TO 1 (0.5MG) TABLET Meloxicam 15 Mg Tablet 15 Mg PO DAILY Eliquis (Apixaban) 5 Mg Tablet 5 Mg PO BID [place]-3 Acid Ethyl Esters 1 Gm Capsule 2 Gm PO BID TAKES 2 (1GM) CAPSULES Tramadol HCl 50 Mg Tablet 50 Mg PO BID PRN Lortab 5 Mg Tablet (Acetaminophen/Hydrocodone Bitart) 1 Each Tablet 1 Tab PO TID PRN Nitroglycerin 0.4 Mg Tab.subl 0.4 Mg SL UD PRN Assessment/Pt Instructions see hpi Discharge Planning: <30 minutes discharge planning Discharge Instructions Activity as Tolerated: Yes Discharge Physical Examination Vital Signs Vital Signs Date Time Temp Pulse Resp B/P (MAP) Pulse Ox O2 Delivery O2 Flow Rate FiO2 07/04/20 07:48 80 07/04/20 04:00 36.6 16 142/84 (103) 96 Room Air General Appearance: No Apparent Distress, WD/WN HEENT: PERRL/EOMI Respiratory: Chest Non Tender, Lungs Clear Cardiovascular: Regular Rate, Rhythm Gastrointestinal: Non Tender, Soft Allergies: Coded Allergies: No Known Drug Allergies (Unverified , 10/26/12) Discharge Summary Date of Admission Jul 03, 2020 at 19:00 Date of Discharge Discharge Date: Jul 04, 2020 Discharge Diagnosis (1) Chest pain Status: Acute Qualifiers: Qualified Codes: R07.9 - Chest pain, unspecified (2) Hypocalcemia (3) Chest wall pain Status: Acute (4) Hypokalemia Status: Resolved (5) CAD (coronary artery disease) Qualifiers: Qualified Codes: I25.708 - Atherosclerosis of coronary artery bypass graft(s), unspecified, with other forms of angina pectoris (6) HTN (hypertension) Status: Acute Qualifiers: Qualified Codes: I10 - Essential (primary) hypertension Clinical Quality Measures AMI/AHF: ASA po Prior to arrival: VISHAL Ramírez MD Jul 04, 2020 11:45
== END 2020-07-04 12:00 | disposition home or self-care (01) ==
LOC: EDUNIT# 17:00 → ER 17:02 → CSD 19:00
PROVIDERS: ADMIT Family Medicine; ATTEND Family Medicine
DX: R07.89 Other chest pain (principal); I25.708 Atherosclerosis of coronary artery bypass graft(s), unspecified, with other forms of angina pectoris; I48.0 Paroxysmal atrial fibrillation; I11.9 Hypertensive heart disease without heart failure; E83.51 Hypocalcemia; E87.6 Hypokalemia; E78.5 Hyperlipidemia, unspecified; I25.2 Old myocardial infarction; E78.00 Pure hypercholesterolemia, unspecified; F41.9 Anxiety disorder, unspecified; Z79.891 Long term (current) use of opiate analgesic; Z79.82 Long term (current) use of aspirin; Z79.1 Long term (current) use of non-steroidal anti-inflammatories (NSAID); Z79.01 Long term (current) use of anticoagulants; Z20.822 Contact with and (suspected) exposure to COVID-19; Z95.5 Presence of coronary angioplasty implant and graft; Z90.89 Acquired absence of other organs; Z98.890 Other specified postprocedural states; Z80.9 Family history of malignant neoplasm, unspecified
CPT/HCPCS: 71045; 80053 ×2; 80061; 80306; 81000; 83735; 83874; 83880; 84484; 85025 ×2; 85610; 85730; 93005; 93041; 99284; U0002; 36415; 87635

== ENCOUNTER 2021-05-09 10:35 | Emergency (ER) | payer BC ==
[~2021-05-09] VITALS: Ht 177.8 cm; Wt 81.4 kg
[~2021-05-09 10:35] MED LIST changes: +PANT40SU PO
--- NOTE | 2021-05-09 13:27 | ED General ---
General Chief Complaint: COVID19 Suspect/Confirmed Stated Complaint: SORE THROAT/NECK PAIN/COUGH Nursing Triage Note: BEGAN HAVING COLD SX ON TUESDAY, AND SORE THROAT ON TUESDAY. STATES HE FEELS LIKE HE HAS STREP THROAT. WAS TESTED ON TUESDAY AT HIS DR AND WAS NEGITIVE FOR COVID. Source of Information: Patient Exam Limitations: No Limitations History of Present Illness Date Seen by Provider: May 09, 2021 Time Seen by Provider: 12:30 Initial Comments Patient is a 65-year-old male who presents to the emergency room with a chief complaint of upper respiratory/cold symptoms starting last Tuesday. Patient states he started developing very sore throat on Tuesday and throughout the rest of the week. He states he was seen by a primary care provider on and put on some Augmentin. He states he has had increasing severe sharp pain in the right side of his throat. He states the pain is so severe it brought him to his knees. He states it hurts to swallow. He is now "hoarse". He has great degree of difficulty swallowing. He states it feels like there is something in his throat and points just to the right of the larynx, just medial to the sternocleidomastoid muscle. He states it feels like something is ripping/tearing. No reported fevers or chills. No cough or shortness of breath. No chest pain. He has not tried any hjqx-hct-zgwvaey medications but has taken a Percocet and a Lortab without any relief of symptoms. All other review of systems reviewed and negative except as stated. Timing/Duration: 4-5 Days Severity: Severe Associated Systoms: Other (painful swallowing) Allergies and Home Medications Allergies Coded Allergies: No Known Drug Allergies (Unverified , 10/26/12) Patient Home Medication List Home Medication List Reviewed: Yes Alprazolam (Alprazolam) 0.5 Mg Tablet, 0.25-0.5 MG PO BID PRN for ANXIETY, (Reported) Entered as Reported by: PRINCE MAJOR on 02/24/16 1012 Amlodipine Besylate (Amlodipine Besylate) 2.5 Mg Tablet, 2.5 MG PO BID, (Reported) Entered as Reported by: ZULEMA ROE on 04/18/17 1526 Apixaban (Eliquis) 5 Mg Tablet, 5 MG PO BID, (Reported) Entered as Reported by: PRINCE MAJOR on 02/24/16 1012 Aspirin (Aspir 81) 81 Mg Tablet.dr, 81 MG PO DAILY, (Reported) Entered as Reported by: ZUELMA ROE on 04/18/17 1526 Diphenhydramine HCl (Benadryl) 25 Mg Capsule, 25-50 MG PO Q6H PRN for ALLERGIES, (Reported) Entered as Reported by: PRINCE MAJOR on 02/24/16 1014 Gabapentin (Gabapentin) 600 Mg Tablet, 600 MG PO TID, (Reported) Entered as Reported by: ZULEMA ROE on 04/18/17 1526 Hydrocodone Bit/Acetaminophen (Lortab 5 Mg Tablet) 1 Each Tablet, 1 TAB PO TID PRN for PAIN, (Reported) Entered as Reported by: PRINCE MAJOR on 02/24/16 1004 Lactobacillus Acidophilus (Probiotic) 1 Each Capsule, 1 CAP PO DAILY, (Reported) Entered as Reported by: PRINCE MAJOR on 02/24/16 1014 Meloxicam (Meloxicam) 15 Mg Tablet, 15 MG PO DAILY, (Reported) Entered as Reported by: PRINCE MAJOR on 02/24/16 1012 Multivitamin (Daily Value) 1 Each Tablet, 1 TAB PO DAILY, (Reported) Entered as Reported by: PRINCE MAJOR on 02/24/16 1014 Nitroglycerin (Nitroglycerin) 0.4 Mg Tab.subl, 0.4 MG SL UD PRN for CHEST PAIN, (Reported) Entered as Reported by: PRINCE MAJOR on 02/24/16 1004 Westwood-3 Acid Ethyl Esters (Westwood-3 Acid Ethyl Esters) 1 Gm Capsule, 2 GM PO BID, (Reported) Entered as Reported by: PRINCE MAJOR on 02/24/16 1012 Pantoprazole Sodium (Protonix) 40 Mg Granpkt.dr, 40 MG PO DAILY Prescribed by: JAKE GARVEY on 07/04/20 1026 Tramadol HCl (Tramadol HCl) 50 Mg Tablet, 50 MG PO BID PRN for PAIN, (Reported) Entered as Reported by: PRINCE MAJOR on 02/24/16 1004 Review of Systems Review of Systems Constitutional: see HPI EENTM: throat pain Respiratory: no symptoms reported Cardiovascular: no symptoms reported Gastrointestinal: no symptoms reported Genitourinary: no symptoms reported Skin: no symptoms reported Psychiatric/Neurological: No Symptoms Reported All Other Systems Reviewed Negative Unless Noted: Yes Past Statxwh-Bjjckf-Lcvvdb Hx Immunizations Up To Date Tetanus Booster (TDap): Unknown Seasonal Allergies Seasonal Allergies: No Past Medical History Surgeries: Yes Appendectomy, Cardiac, CABG, Coronary Stent Respiratory: No Cardiac: Yes Atrial Fibrillation, Coronary Artery Disease, Heart Attack, High Cholesterol, Hypertension Neurological: No Reproductive Disorders: No Sexually Transmitted Disease: No HIV/AIDS: No Gastrointestinal: No Irritable Bowel Musculoskeletal: Yes Degenerate Disk Disease, Chronic Back Pain Endocrine: No HEENT: Yes Tinnitis Cancer: No Psychosocial: Yes Anxiety Integumentary: No Blood Disorders: No Adverse Reaction/Blood Tranf: No Family Medical History Cancer 19 FATHER Carotid stenosis 19 MOTHER Myocardial infarction G8 BROTHER PAD G8 SISTER Heart Disease Physical Exam Vital Signs Vital Signs - First Documented 05/09/21 11:12 Temp 36.4 Pulse 80 Resp 18 B/P (MAP) 184/81 (115) Pulse Ox 98 O2 Delivery Room Air Capillary Refill : Less Than 3 Seconds Height, Weight, BMI Height: 5'10.00" Weight: 171lbs. 0.0oz. [id number]; 25.00 BMI Method:Stated General Appearance: No Apparent Distress, WD/WN Eyes: Bilateral Eye Normal Inspection, Bilateral Eye PERRL, Bilateral Eye EOMI HEENT: PERRL/EOMI, TMs Normal, Normal ENT Inspection, Pharynx Normal, Other (Tonsils atrophied, no significant degree of erythema, no exudate. ) Neck: Full Range of Motion, Normal Inspection, Supple, Other (No reproducible tenderness along the sternocleidomastoid muscle or just medial to it in the mid neck) Respiratory: Lungs Clear, Normal Breath Sounds, No Accessory Muscle Use, No Respiratory Distress Cardiovascular: Regular Rate, Rhythm, Normal Peripheral Pulses Gastrointestinal: Non Tender, Soft Extremity: Normal Inspection, Normal Range of Motion, Non Tender, No Calf Tenderness Neurologic/Psychiatric: Alert, Oriented x3, No Motor/Sensory Deficits, Normal Mood/Affect Skin: Normal Color, Warm/Dry Progress/Results/Core Measures Suspected Sepsis SIRS Temperature: Pulse: 80 Respiratory Rate: 18 Laboratory Tests 05/09/21 13:40: White Blood Count 13.8H Blood Pressure 184 /81 Mean: 115 Laboratory Tests 05/09/21 13:40: Creatinine 0.78, Platelet Count 242 Results/Orders Lab Results Laboratory Tests Test 05/09/21 11:15 05/09/21 13:40 Range/Units Influenza Type A (RT-PCR) Not Detected Not Detecte Influenza Type B (RT-PCR) Not Detected Not Detecte SARS-CoV-2 RNA (RT-PCR) Not Detected Not Detecte Group A Streptococcus Screen NEGATIVE NEGATIVE White Blood Count 13.8 H 4.3-11.0 10^3/uL Red Blood Count 4.76 4.30-5.52 10^6/uL Hemoglobin 14.2 13.3-17.7 g/dL Hematocrit 43 40-54 % Mean Corpuscular Volume 90 80-99 fL Mean Corpuscular Hemoglobin 30 25-34 pg Mean Corpuscular Hemoglobin Concent 33 32-36 g/dL Red Cell Distribution Width 12.8 10.0-14.5 % Platelet Count 242 130-400 10^3/uL Mean Platelet Volume 11.0 9.0-12.2 fL Immature Granulocyte % (Auto) 1 % Neutrophils (%) (Auto) 73 42-75 % Lymphocytes (%) (Auto) 17 12-44 % Monocytes (%) (Auto) 8 0-12 % Eosinophils (%) (Auto) 1 0-10 % Basophils (%) (Auto) 0 0-10 % Neutrophils # (Auto) 10.1 H 1.8-7.8 10^3/uL Lymphocytes # (Auto) 2.4 1.0-4.0 10^3/uL Monocytes # (Auto) 1.1 H 0.0-1.0 10^3/uL Eosinophils # (Auto) 0.1 0.0-0.3 10^3/uL Basophils # (Auto) 0.1 0.0-0.1 10^3/uL Immature Granulocyte # (Auto) 0.1 0.0-0.1 10^3/uL Sodium Level 142 135-145 MMOL/L Potassium Level 3.9 3.6-5.0 MMOL/L Chloride Level 104 98-107 MMOL/L Carbon Dioxide Level 27 21-32 MMOL/L Anion Gap 11 5-14 MMOL/L Blood Urea Nitrogen 10 7-18 MG/DL Creatinine 0.78 0.60-1.30 MG/DL Estimat Glomerular Filtration Rate 100 BUN/Creatinine Ratio 13 Glucose Level 96 70-105 MG/DL Calcium Level 8.9 8.5-10.1 MG/DL My Orders Orders - PADMA VALVERDE MD Soft Tissue Neck (05/09/21 12:39) Ed Iv/Invasive Line Start (05/09/21 13:21) Basic Metabolic Panel (05/09/21 13:21) Cbc With Automated Diff (05/09/21 13:21) Ct Neck (Soft Tissue) W (05/09/21 13:21) Ketorolac Injection (Toradol Injection) (05/09/21 13:30) Antacid Suspension (Mylanta Suspension (05/09/21 13:30) Lidocaine 2% Viscous 15 Ml (Xylocaine Vi (05/09/21 13:30) Iohexol Injection (Omnipaque 350 Mg/Ml 1 (05/09/21 14:00) Received Contrast (Hold Metformin- Contr (05/09/21 14:00) Ns (Ivpb) (Sodium Chloride 0.9% Ivpb Bag (05/09/21 14:00) Medications Given in ED Current Medications Medications Dose Ordered Sig/Kaz Route Start Time Stop Time Status Last Admin Dose Admin Al Hydrox/Mg Hydrox/Simethicone 30 ml ONCE ONCE PO 05/09/21 13:30 05/09/21 13:31 DC 05/09/21 13:43 30 ML Iohexol 75 ml ONCE ONCE IV 05/09/21 14:00 05/09/21 14:01 DC 05/09/21 14:18 75 ML Ketorolac Tromethamine 15 mg ONCE ONCE IVP 05/09/21 13:30 05/09/21 13:31 DC 05/09/21 13:39 15 MG Lidocaine HCl 5 ml ONCE ONCE PO 05/09/21 13:30 05/09/21 13:31 DC 05/09/21 13:43 5 ML Sodium Chloride 100 ml ONCE ONCE IV 05/09/21 14:00 05/09/21 14:01 DC 05/09/21 14:18 80 ML Vital Signs/I&O 05/09/21 11:12 Temp 36.4 Pulse 80 Resp 18 B/P (MAP) 184/81 (115) Pulse Ox 98 O2 Delivery Room Air Capillary Refill : Less Than 3 Seconds Blood Pressure Mean: 115 Progress Note : Time: 16:00 Progress Note Patient has a right paraglottic space abscess that has surrounding edema that extends into the airway on the right with edema into the vocal cord on the right. I have done some basic labs including CBC and chemistry. He has a mild leukocytosis. Covid testing is negative. Patient is unvaccinated. I talked to him about getting vaccinated he seems like he might do this. 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 I advised patient about the results of his CAT scan. We talked about going to [place] to have this abscess drained. He is agreeable. I will send him by private vehicle. He has had IV Toradol, Maalox and viscous lidocaine. His pain is well controlled at this time. He states after his CT with IV contrast he actually feels a little bit better. He still has a hoarse voice. Vital signs are stable. He is not hypoxic. Patient is instructed to go to the emergency department, check-in and advised them that he is there to see the ENT surgeon. All questions have been sought and answered. Diagnostic Imaging Diagonstic Imaging: Xray Comments [facility]. [place], [place] NAME: GREGG HERNANDEZ [facility] REC#: [id number] PT STATUS: REG ER : 1955 PHYSICIAN: PADMA VALVERDE MD ADMIT DATE: 05/09/21/ER Draft Date of Exam:05/09/21 SOFT TISSUE NECK INDICATION: Severe right neck pain, trouble swallowing. TECHNIQUE: Two-view soft tissue neck, 1:12 p.m. CORRELATION STUDY: None. FINDINGS: Mildly advanced cervical spondylosis. Moderate disc space narrowing particularly at the C5-C6 and C6-C7 levels. Prominent osteophytes both anteriorly and posteriorly. Prevertebral soft tissues are unremarkable. No abnormal soft tissue gas collection. No significant contour deformity. No radiopaque foreign body. IMPRESSION: 1. Unremarkable appearing soft tissue neck examination. Dictated on workstation # [id number] Dict: 05/09/21 1319 Trans: 05/09/21 1346 [id number] Interpreted by: FAUSTO MCHUGH DO Electronically signed by: [facility] [place] NAME: GREGG HERNANDEZ [facility] REC#: [id number] PT STATUS: REG ER : 1955 PHYSICIAN: PADMA VALVERDE MD ADMIT DATE: 05/09/21/ER Signed Date of Exam:05/09/21 CT NECK (SOFT TISSUE) W PROCEDURE: CT neck soft tissue with contrast. TECHNIQUE: Multiple contiguous axial images were obtained through the neck after the administration of contrast. Auto Exposure Controls were utilized during the CT exam to meet ALARA standards for radiation dose reduction. INDICATION: Sore throat. Findings: A fluid collection with peripheral enhancement is seen in the right paraglottic space measuring 2.2 x 1.2 cm and 2.6 cm craniocaudal. This is causing mass effect on the airway without evidence of airway compromise. Associated edema is seen extending into the right vocal cord. Mildly prominent right cervical lymph nodes are noted. The parapharyngeal fat planes are preserved. No prevertebral or retropharyngeal fluid collections are seen. The parotid, submandibular and thyroid gland are unremarkable. The vascular structures the neck demonstrate no evidence of high-grade stenosis on this nondedicated exam. The visualized lung apices are clear. The visualized intracranial contents demonstrate no evidence of pathologic intracranial enhancement or intracranial mass effect. Visualized orbital contents are unremarkable. The visualized paranasal sinuses are clear. The mastoids and middle ears are clear. No acute osseous abnormality in the cervical spine. Impression: 1. Findings suggestive of abscess within the right paraglottic space causing mass effect on the airway without evidence of airway compromise. Associated edema is seen extending into the right vocal cord. Underlying malignancy is not completely excluded and follow-up is recommended to ensure resolution. Dictated by: Dictated on workstation # [id number] Dict: 05/09/21 1436 Trans: 05/09/21 1457 [facility] [id number] Interpreted by: IVÁN SHARMA DO Electronically signed by: IVÁN SHARMA DO 05/09/21 1457 Departure Impression Primary Impression: Neck abscess Disposition: HOME, SELF-CARE Condition: Stable Transfer Transfer Reason: Exceeds level of care Time Spoke to Accepting Phy: 15:34 Transfer Progress Notes Case discussed with Dr. Zoë Vance, ENT. Recommends patient transferred to the ER so that they can drain this abscess. Case also discussed with Dr. Rafael bird [facility] who accepts the patient for transfer. Transfer Time: 15:59 Transfer Facility: [facility] Method of Transfer: Private Vehicle Departure-Patient Inst. Decision time for Depature: 15:59 Referrals: LEX CR MD (PCP/Family) Primary Care Physician Patient Instructions: Abscess Drainage, Percutaneous (Fluoroscopic, Ultrasonic, or CT Guidance) Add. Discharge Instructions: Do not eat or drink anything before you get to [facility]. Go to the ER and check-in and handed them your packet and tell them that you are there to see the ear nose and throat surgeon. Dr. Vance is the surgeon I spoke with. PADMA VALVERDE MD May 09, 2021 13:27
[2021-05-09] MEDS ORDERED: KETOROLAC 30 MG/ML VIAL IVP ONE (13:30)
[2021-05-09] MEDS ORDERED: ANTACID SUSP 30 ML UDC (MYLANTA) PO ONE (13:30)
[2021-05-09] MEDS ORDERED: LIDOCAINE 2% VISCOUS 15 ML UDC PO ONE (13:30)
[2021-05-09 13:45] LABS: BASOPHILS # (AUTO) 0.1 10^3/uL (0.0-0.1); BASOPHILS % (AUTO) 0 % (0-10); EOSINOPHILS # (AUTO) 0.1 10^3/uL (0.0-0.3); EOSINOPHILS % (AUTO) 1 % (0-10); HEMATOCRIT 43 % (40-54); HEMOGLOBIN 14.2 g/dL (13.3-17.7); LYMPHOCYTES # (AUTO) 2.4 10^3/uL (1.0-4.0); LYMPHOCYTES % (AUTO) 17 % (12-44); MEAN CORPUSCULAR HEMOGLOBIN 30 pg (25-34); MEAN CORPUSCULAR HGB CONC 33 g/dL (32-36); MEAN CORPUSCULAR VOLUME 90 fL (80-99); MONOCYTES # (AUTO) 1.1 10^3/uL (0.0-1.0); MONOCYTES % (AUTO) 8 % (0-12); NEUTROPHILS # (AUTO) 10.1 10^3/uL (1.8-7.8); NEUTROPHILS % (AUTO) 73 % (42-75); PLATELET COUNT 242 10^3/uL (130-400); WHITE BLOOD COUNT 13.8 10^3/uL (4.3-11.0)
--- NOTE | 2021-05-09 13:48 | Diagnostic Imaging Report ---
INDICATION: Severe right neck pain, trouble swallowing. TECHNIQUE: Two-view soft tissue neck, 1:12 p.m. CORRELATION STUDY: None. FINDINGS: Mildly advanced cervical spondylosis. Moderate disc space narrowing particularly at the C5-C6 and C6-C7 levels. Prominent osteophytes both anteriorly and posteriorly. Prevertebral soft tissues are unremarkable. No abnormal soft tissue gas collection. No significant contour deformity. No radiopaque foreign body. IMPRESSION: 1. Unremarkable appearing soft tissue neck examination. Dictated by: Dictated on workstation # [id number]
[2021-05-09] MEDS ORDERED: IOHEXOL 350 MG/ML 100 ML (OMNIPAQUE 350) VIAL IV ONE (14:00)
[2021-05-09] MEDS ORDERED: NS 100 ML (IVPB) BAG IV ONE (14:00)
[2021-05-09] MEDS ORDERED: HOLD METFORMIN - RECEIVED CONTRAST 20 ML VIAL IV SCH (14:00)
[2021-05-09 14:01] LABS: POTASSIUM 3.9 MMOL/L (3.6-5.0)
[2021-05-09 14:03] LABS: CALCIUM 8.9 MG/DL (8.5-10.1)
[2021-05-09 14:07] LABS: CREATININE SERUM 0.78 MG/DL (0.60-1.30)
--- NOTE | 2021-05-09 14:54 | Diagnostic Imaging Report ---
PROCEDURE: CT neck soft tissue with contrast. TECHNIQUE: Multiple contiguous axial images were obtained through the neck after the administration of contrast. Auto Exposure Controls were utilized during the CT exam to meet ALARA standards for radiation dose reduction. INDICATION: Sore throat. Findings: A fluid collection with peripheral enhancement is seen in the right paraglottic space measuring 2.2 x 1.2 cm and 2.6 cm craniocaudal. This is causing mass effect on the airway without evidence of airway compromise. Associated edema is seen extending into the right vocal cord. Mildly prominent right cervical lymph nodes are noted. The parapharyngeal fat planes are preserved. No prevertebral or retropharyngeal fluid collections are seen. The parotid, submandibular and thyroid gland are unremarkable. The vascular structures the neck demonstrate no evidence of high-grade stenosis on this nondedicated exam. The visualized lung apices are clear. The visualized intracranial contents demonstrate no evidence of pathologic intracranial enhancement or intracranial mass effect. Visualized orbital contents are unremarkable. The visualized paranasal sinuses are clear. The mastoids and middle ears are clear. No acute osseous abnormality in the cervical spine. Impression: 1. Findings suggestive of abscess within the right paraglottic space causing mass effect on the airway without evidence of airway compromise. Associated edema is seen extending into the right vocal cord. Underlying malignancy is not completely excluded and follow-up is recommended to ensure resolution. Dictated by: Dictated on workstation # [id number]
[2021-05-09 16:05] VITALS: BP 137/73
== END 2021-05-09 16:12 | disposition home or self-care (01) ==
LOC: EDUNIT# 10:35 → ER 10:39
DX: L02.11 Cutaneous abscess of neck (principal); I10 Essential (primary) hypertension; I25.2 Old myocardial infarction; I25.10 Atherosclerotic heart disease of native coronary artery without angina pectoris; F41.9 Anxiety disorder, unspecified; I48.91 Unspecified atrial fibrillation; G89.29 Other chronic pain; M54.9 Dorsalgia, unspecified; Z20.822 Contact with and (suspected) exposure to COVID-19; Z79.01 Long term (current) use of anticoagulants; Z79.82 Long term (current) use of aspirin; Z79.899 Other long term (current) drug therapy; Z79.891 Long term (current) use of opiate analgesic
CPT/HCPCS: 36415; 70360; 70491; 80048; 85025; 87430; 87636

== ENCOUNTER → 2022-03-29 | Outpatient (CLI) | payer MEDICARE ==
--- NOTE | 2022-03-29 15:58 | Diagnostic Imaging Report ---
INDICATION: Persistent sternal pain, history of cardiac surgery and sternotomy wire removal. TECHNIQUE: Multiple contiguous axial images were obtained through the chest without the use of intravenous contrast. Auto Exposure Controls were utilized during the CT exam to meet ALARA standards for radiation dose reduction. COMPARISON: 08/19/2014. FINDINGS: There are no enlarged mediastinal or hilar nodes. There are postop changes status post previous coronary bypass. There are no enlarged axillary nodes or chest wall masses. There is no pleural or pericardial fluid. The visualized portions of the upper abdomen demonstrate no acute abnormality. Lung parenchymal windows demonstrate no pulmonary parenchymal infiltrates or nodules. Bone windows demonstrate postop changes in the sternum with plate and screws in place superiorly in the manubrium. There is no destructive bony lesion of the sternum or ribs. IMPRESSION: The CT chest demonstrates no chest wall mass or destructive bony lesion. There are postop changes in the sternal manubrium with plate and screws in place. There is no other significant finding. Dictated by: Dictated on workstation # [id number]
== END ==
LOC: RAD 10:22
PROVIDERS: ATTEND Nurse Practitioner
DX: R07.89 Other chest pain (principal); Z87.74 Personal history of (corrected) congenital malformations of heart and circulatory system
CPT/HCPCS: 71250

== ENCOUNTER → 2022-10-08 | Outpatient (CLI) | payer MEDICARE, OTHER ==
[~2022-10-08] VITALS: Ht 180 cm; Wt 81.0 kg
[~2022-10-08] MED LIST changes: +REGADENOSON 0.4 MG/5 ML SYR (LEXISCAN) IV ONE
[2022-10-08] MEDS: CATHETER FLUSH 10 ML SYR IVP PRN ×2 (07:04→08:13)
[2022-10-08 08:11] VITALS: BP 157/92
--- NOTE | 2022-10-09 21:57 | STRESS TEST ---
DATE OF SERVICE: 10/08/2022 RESTING AND POST REGADENOSON TECHNETIUM-99M TETROFOSMIN SPECT CT IMAGING ORDERING PHYSICIAN: Dr. Meléndez. PRIMARY PHYSICIAN: Dr. Vishal Tracey. CLINICAL DIAGNOSIS: Chest pain, coronary artery disease. Baseline images were carried out after injection of 10.39 mCi of technetium-99m tetrofosmin. This was followed by 0.4 mg regadenoson and 31.5 mCi of technetium-99m tetrofosmin for stress imaging. Electrocardiogram showed sinus rhythm at baseline. It did not change significantly with the regadenoson infusion. The patient tolerated the procedure well. Review of images at rest and following stress does not indicate any distinct perfusion defects consistent with significant myocardial ischemia or infarction. Gated images show well preserved global left ventricular systolic function. Left ventricular ejection fraction is calculated to be 44%, but appears somewhat higher than that subjectively. No distinct regional wall motion is seen. CONCLUSIONS: 1. No evidence of significant myocardial ischemia or infarction on this study. 2. No significant regional wall motion abnormality. 3. Global left ventricular systolic function appears to be well preserved. Left ventricular ejection fraction is calculated to be 44%, but appears to be somewhat higher than that subjectively. Job ID: [id number] DocumentID: [id number] Dictated Date: 10/09/2022 17:15:15 [employer] Specialist Date: 10/09/2022 21:55:00 Dictated By: JOSELYN MELÉNDEZ MD; DENY; FACP; FACC;
== END ==
LOC: CARD 07:00
PROVIDERS: ATTEND Internal Medicine Cardiovascular Disease
DX: R07.89 Other chest pain (principal)
CPT/HCPCS: 78452; 93017; A9502